=== PATIENT | female | born 1995 | race Caucasian/White ===

== ENCOUNTER 2021-06-29 13:16 | Outpatient (CLI) | payer OTHER, SELFPAY ==
--- NOTE | ~2021-06-29 | CT_ITS ---
EXAMINATION: CT sinus wo con DATE: 06/29/2021 13:50 INDICATION: Deviated septum TECHNIQUE: Computed tomography (CT) of the paranasal sinuses was performed without intravenous contra st. The dose-length product (DLP) was 316.52 mGy-cm. Iterative reconstruction was used. COMPARISON: None FINDINGS: There is normal development and pneumatization of the paranasal sinuses. There is partial o pacification of the ethmoidal air cells. There is moderate mucosal thickening of the left maxillary s inus and mild mucosal thickening of the right maxillary sinus. The frontal and sphenoid sinuses are c lear. There is a small right mastoid effusion. The left mastoid air cells are clear. There are 6 mm o f leftward deviation of the nasal septum. The bilateral ostiomeatal complexes are occluded. Visualize d soft tissues are unremarkable. IMPRESSION: 1. Sinus disease as described above. 2. 6 mm of leftward deviation of the nasal septum. Reviewed, dictated and finalized at location A.
== END 2021-06-29 13:17 | disposition home or self-care (01) ==
PROVIDERS: Visit Provider Otolaryngology
DX: J34.2 Deviated nasal septum (principal); J32.9 Chronic sinusitis, unspecified
CPT/HCPCS: 70486

== ENCOUNTER 2021-08-05 02:26 | Day surgery (SDC) | payer OTHER, SELFPAY ==
[2021-07-29 15:38] VITALS: BMI 31.1
--- NOTE | 2021-07-29 15:42 | PC.NURSE ---
Report to the Outpatient Waiting Room, entrance under the green pavilion located off [facility], at time 0645 on date 08/05/21. OR Time: 0845. - You and your visitor will be asked a series of questions to screen for COVID 19 for your protection. - Only one visitor is allowed at this time. - The patient visitor is requested to leave or wait in car when not with patient. - A mask is required within the hospital. Patients may have clear liquids (water, carbonated beverages, clear teas, apple juice) until 3 hours prior to surgery with a maximum of 20 ounces. - No food from midnight until time of surgery Take the following medications with a SIP of water the morning of surgery: NONE Medications to discontinue per physician: VITAMINS/SUPPLEMENTS Date to take last dose: 08/01/21 Please no make-up, nail north korean, hairspray, perfume, deodorant, or body powder the day of surgery. No jewelry (including any body piercings) or valuables the day of surgery, leave them at home. Please take a shower or bath the night before, or the morning of, surgery with an antibacterial soap. Wear comfortable, loose fitting clothing. - Jewelry must be removed prior to entering the operating room. Rings and piercings that are not removed may be cut off. - The hospital will not accept responsibility for valuables. - Please leave all valuables, including medications, at home the day of surgery. If you are going home after surgery, a licensed limousine driver must drive you home. - NO public transportation without another adult. - We recommend that an adult stay with you for 24 hours following discharge. - We also recommend that you do not drive, make important decision, drink alcoholic beverages, or take any drugs that were not prescribed by your health care provider for at least 24 hours after your discharge time. Follow any additional instructions given to you from your surgeon. If you or anyone in your household have experienced Covid symptoms in the past week, please notify your surgeon or the nurse liaison at the phone number below for possible testing. Telephone instructions given to PT - BRAYAN CHUNG and asked if any additional questions and then verbalized understanding. Patient advised to call surgeon office or pre surgery nurse liaison [phone] if any additional questions.
--- NOTE | 2021-08-03 09:21 | PM.HPGS ---
History of Present Illness History of Present Illness Consent: Risks, benefits, and alternatives have been discussed and questions answered. Patient agrees to proceed with procedure. Chief complaint: chronic sinusitis Narrative: Edilma Velasquez is a 26 year old female with a deviated septum turbinate hypertrophy and chronic maxillary sinusitis Review of Systems Review of Systems: All systems reviewed & are unremarkable except as noted in HPI and below PMFSH Social History Social History Smoking status: Never smoker Alcohol intake: never Substance use: never Substance use type: does not use Living arrangements: with family Spiritual care concerns: No Meds Home Medications and Allergies Home Medications Medication Instructions Recorded Confirmed Type cetirizine 10 mg tablet (Zyrtec) 10 mg PO DAILY 07/29/21 07/29/21 History multivitamin 1 tablet PO DAILY 07/29/21 07/29/21 History Allergies Allergy/AdvReac Type Severity Reaction Status Date / Time Sulfa (Sulfonamide Allergy Severe Anaphylactic Verified 07/29/21 15:37 Antibiotics) Shock Exam Narrative: chest clear heart murmurs abdomen soft septum deviated with obstruction
--- NOTE | 2021-08-03 09:25 | P.HP_ITS ---
History of Present Illness History of Present Illness Consent: Risks, benefits, and alternatives have been discussed and questions answered. Patient agrees to proceed with procedure. Chief complaint: chronic sinusitis Narrative: Edilma Velasquez is a 26 year old female with a septal deviation chronic sinusitis Review of Systems Review of Systems: All systems reviewed & are unremarkable except as noted in HPI and below PMFSH Social History Social History Smoking status: Never smoker Alcohol intake: never Substance use: never Substance use type: does not use Living arrangements: with family Spiritual care concerns: No Comments social family medical history unremarkable Meds Home Medications and Allergies Home Medications Medication Instructions Recorded Confirmed Type cetirizine 10 mg tablet (Zyrtec) 10 mg PO DAILY 07/29/21 07/29/21 History multivitamin 1 tablet PO DAILY 07/29/21 07/29/21 History Allergies Allergy/AdvReac Type Severity Reaction Status Date / Time Sulfa (Sulfonamide Allergy Severe Anaphylactic Verified 07/29/21 15:37 Antibiotics) Shock Exam Narrative: chest clear heart murmurs abdomen soft septum deviated with obstru ction Assessment and Plan Assessment and plan Plan plan septoplasty bilateral inferior turbinectomy
[2021-08-05] VITALS (7 sets, daily range): BP systolic 122–147; BP diastolic 78–88; PULSE 69–108; RESP 12–16; TEMP 36.3–36.7; O2SAT 97–100; BMI 31.6
--- NOTE | 2021-08-05 06:18 | PM.HPGS ---
History of Present Illness History of Present Illness Consent: Risks, benefits, and alternatives have been discussed and questions answered. Patient agrees to proceed with procedure. Chief complaint: chronic sinusitis Narrative: Edilma Velasquez is a 26 year old female [facility] Social History Social History Smoking status: Never smoker Alcohol intake: never Substance use: never Substance use type: does not use Living arrangements: with family Spiritual care concerns: No Comments Family medical social previous medical history all unremarkable Meds Home Medications and Allergies Home Medications Medication Instructions Recorded Confirmed Type cetirizine 10 mg tablet (Zyrtec) 10 mg PO DAILY 07/29/21 07/29/21 History multivitamin 1 tablet PO DAILY 07/29/21 07/29/21 History Allergies Allergy/AdvReac Type Severity Reaction Status Date / Time Sulfa (Sulfonamide Allergy Severe Anaphylactic Verified 07/29/21 15:37 Antibiotics) Shock
--- NOTE | 2021-08-05 06:19 | WPDHPUPDATE1 ---
History and Physical Update Update Date/Time: 08/05/21 06:19 History and Physical has been reviewed, including an updated exam of the patient. There are NO changes in the patient's condition. Risks, benefits, and alternatives have been discussed and questions answered. Patient agrees to proceed with procedure.
--- NOTE | 2021-08-05 07:11 | WPDHPUPDATE1 ---
History and Physical Update Update Date/Time: 08/05/21 07:11 History and Physical has been reviewed, including an updated exam of the patient. There are NO changes in the patient's condition. Risks, benefits, and alternatives have been discussed and questions answered. Patient agrees to proceed with procedure. Assessment & Plan (1) Nasal septal deviation: Code(s): J34.2 - Deviated nasal septum Category: Medical Plan: Septoplasty bilateral inferior turbinectomy bilateral maxillary antrostomy Plan Septoplasty bilateral inferior turbinectomy bilateral maxillary antrostomy
--- NOTE | 2021-08-05 07:12 | PM.HPGS ---
History of Present Illness History of Present Illness Consent: Risks, benefits, and alternatives have been discussed and questions answered. Patient agrees to proceed with procedure. Chief complaint: chronic sinusitis Narrative: Edilma Velasquez is a 26 year old female [facility] Social History Social History Smoking status: Never smoker Alcohol intake: never Substance use: never Substance use type: does not use Living arrangements: with family Spiritual care concerns: No Meds Home Medications and Allergies Home Medications Medication Instructions Recorded Confirmed Type cetirizine 10 mg tablet (Zyrtec) 10 mg PO DAILY 07/29/21 07/29/21 History multivitamin 1 tablet PO DAILY 07/29/21 07/29/21 History Allergies Allergy/AdvReac Type Severity Reaction Status Date / Time Sulfa (Sulfonamide Allergy Severe Anaphylactic Verified 07/29/21 15:37 Antibiotics) Shock
--- NOTE | 2021-08-05 07:14 | WPDHPUPDATE1 ---
History and Physical Update Update Date/Time: 08/05/21 07:14 History and Physical has been reviewed, including an updated exam of the patient. There are NO changes in the patient's condition. Risks, benefits, and alternatives have been discussed and questions answered. Patient agrees to proceed with procedure.
[2021-08-05] MEDS: ACETAMINOPHEN 500 MG TABLET 1000 MG PO (07:35)
--- NOTE | 2021-08-05 07:44 | P.PNAN_ITS ---
Anes - Initial Pre Proc Eval Procedure: Operation Date: 08/05/21 09:15 Proposed Procedures p Septoplasty, Bilateral Inferior Turbinectomy, Bilateral Maxillary Antrostomy - Jamal Garcia MD Date/Time: 08/05/21 07:44 Surgeon: Jamal Garcia MD Pre Op Diagnosis: chronic sinusitis Patient Data Age: 26 Gender: F Height: 1.57 m Weight: 78.3 kg Last Vital Signs Temp 36.7 C 08/05/21 07:38 Pulse 74 08/05/21 07:38 Resp 16 08/05/21 07:38 BP 122/79 08/05/21 07:38 Pulse Ox 100 08/05/21 07:38 O2 Del Method Room Air 08/05/21 07:38 Allergies Allergy/AdvReac Type Severity Reaction Status Date / Time Sulfa (Sulfonamide Allergy Severe Anaphylactic Verified 08/05/21 07:29 Antibiotics) Shock Home Medications Medication Instructions Recorded Confirmed Type cetirizine 10 mg tablet (Zyrtec) 10 mg PO DAILY 07/29/21 08/05/21 History multivitamin 1 tablet PO DAILY 07/29/21 08/05/21 History Patient hx anesthesia problems: none Family hx anesthesia problems: none Results Review: All pre-operative results and documents have been reviewed as part of the pre- operative evaluation. [facility] Social History Social History Smoking status: Never smoker Alcohol intake: never Substance use: never Substance use type: does not use Living arrangements: with family Spiritual care concerns: No Anes - Eval Final PreProcedure Day of Procedure 08/05/21 07:44 Patient weight: overweight Heart: regular rate and rhythm Lungs: clear to auscultation Airway: Mallampati scale class II Neurological: alert and oriented Last oral intake: >/= 8 hours ASA classification: II Emergent: no Anesthetic plan: proceed Anesthesia type and monitoring: general ETT and standard monitoring Results Review: All pre-operative results and documents have been reviewed as part of the pre- operative evaluation. Informed Consent: The patient's anesthetic plan and its attendant risks and benefits were discussed with the patient/family/POA. Questions were solicited and answers provided to the satisfaction of the patient/family/POA.
[2021-08-05] MEDS: LACTATED RINGERS 1,000 ML 30 ML IV CONT ×2 (07:48→10:34)
[2021-08-05] MEDS: COCAINE HCL (*CRX) 4% TOP SOLN 4 ML VIAL 1 APPLIC TOPICAL (09:25)
[2021-08-05] MEDS: LIDO 1%/EPINEPHRINE/PF 1:200,000 30 ML VIAL 5 ML XX (09:26)
--- NOTE | 2021-08-05 09:29 | SUR.PREOP ---
0900; OFFERED TO TAKE PT TO BATHROOM, PT REFUSED
--- NOTE | 2021-08-05 10:01 | W.PM.PROC2 ---
Procedure Note - Detailed Date of Procedure 08/05/21 Pre-op Diagnosis chronic sinusitis Post-op Diagnosis Same Procedure Performed Septoplasty bilateral inferior turbinectomy bilateral maxillary antrostomy Surgeon Jamal Garcia MD
--- NOTE | 2021-08-05 10:04 | W.PM.PROC2 ---
Procedure Note - Detailed Date of Procedure 08/10/21 Pre-op Diagnosis chronic sinusitis septal deviation turbinate hypertrophy Post-op Diagnosis Same Procedure Performed septoplasty bilateral inferior turbinectomy Surgeon Jamal Garcia MD Description of Procedure The patient was prepped and draped fashion general anesthesia the nose packed with cocaine impregnated cottonoids injected with xylocaine with adrenaline a right hemitransection was made left anterior and posterior is elevated the bony cartilage junction and right posterior elevated the bony deviation was removed this strip of septal cartilage was removed off of the bony vomer in grooved the swelling to cartilages bur bony remnant to the midline incision closed with 4-0 chromic and Stokes splints placed in a 2 mm microdebrider was used to reduce disease size of the inferior turbinates and bilateral inferior turbinates were done enlarged and then packed with Surgicel patient awakened returned to recovery good his
[2021-08-05] MEDS: oxyCODONE HCL (*CRX) 5 MG TAB IR PO (11:52)
== END 2021-08-05 12:17 | disposition home or self-care (01) ==
PROVIDERS: Visit Provider Otolaryngology
PROC: (CPT 30520; principal; 2021-08-05 09:15)
DX: J32.8 Other chronic sinusitis (principal)
CPT/HCPCS: 30520; 30140; A9270; J0330; J1100; J1170; J2250; J2405; J2704; J3010; J7120

== ENCOUNTER 2022-01-04 08:23 | Outpatient (CLI) | payer OTHER, SELFPAY ==
[2022-01-04 18:35] LABS: Alanine Aminotransferase 16 U/L (6-35); Albumin Level 4.3 g/dL (3.5-5.1); Alkaline Phosphatase 61 U/L (38-126); Anion Gap 10 mmol/L (8-16); Aspartate Amino Transferase 21 U/L (14-36); Bilirubin,Total 0.7 mg/dL (0.2-1.3); Blood Urea Nitrogen 13 mg/dL (7-17); Calcium 8.9 mg/dL (8.4-10.2); Carbon Dioxide 25 mmol/L (22-30); Chloride 102 mmol/L (98-107); Cholesterol 156 mg/dL (0-200); Estimated Glomerular Filt Rate > 60; Glucose 93 mg/dL (65-110); HDL Direct 38 mg/dL; Potassium 4.2 mmol/L (3.4-5.0); Sodium 137 mmol/L (137-145); Triglycerides 153 mg/dL (<150)
[2022-01-04 18:46] LABS: LDL Cholesterol Direct 90 mg/dL
[2022-01-04 20:51] LABS: Hemoglobin A1C 5.1 % (<5.7)
== END 2022-01-04 08:24 | disposition home or self-care (01) ==
LOC: ANHGOSHLAB 08:26
PROVIDERS: PCP Emergency Medicine; Visit Provider Emergency Medicine
DX: E66.9 Obesity, unspecified (principal)
CPT/HCPCS: 36415; 80053; 80061; 83036

== ENCOUNTER 2022-05-26 08:57 | Outpatient (CLI) | payer OTHER, SELFPAY | END 2022-05-26 08:58 | disposition home or self-care (01) | LOC: ANHAUDIO 08:57 | PROVIDERS: PCP Emergency Medicine; Visit Provider Otolaryngology | DX: H72.91 Unspecified perforation of tympanic membrane, right ear (principal); H90.11 Conductive hearing loss, unilateral, right ear, with unrestricted hearing on the contralateral side | CPT/HCPCS: 92557; 92567 ==

== ENCOUNTER 2022-06-16 09:31 | Outpatient (CLI) | payer OTHER, SELFPAY ==
[2022-06-20 14:18] LABS: Testosterone Total 24 ng/dL (2-45)
== END 2022-06-16 09:32 | disposition home or self-care (01) ==
LOC: ANHGOSHLAB 09:32
PROVIDERS: PCP Emergency Medicine; Visit Provider Nurse Practitioner Family
DX: E66.9 Obesity, unspecified (principal); L68.0 Hirsutism; F32.A Depression, unspecified
CPT/HCPCS: 36415; 83498; 84403

== ENCOUNTER 2022-07-26 01:54 | Day surgery (SDC) | payer OTHER, SELFPAY ==
[2022-07-18 14:19] VITALS: BMI 30.2
--- NOTE | 2022-07-18 14:20 | PC.NURSE ---
Report to the Outpatient Waiting Room, entrance under the green pavilion located off [facility], at time _0815__ on date _07/26/22__. Planned Procedure Time: _1015__. Time changes happen often and if your time is changed the preop area will call you the afternoon before. - You and your visitor will be asked to self-screen and do not enter if you have any COVID symptoms. - A mask is optional within the hospital at this time. Patients may have clear liquids (water, carbonated beverages, clear teas, apple juice) until 3 hours prior to surgery with a maximum of 20 ounces. - No food from midnight until time of surgery - Infants may have breast milk until 4 hours before surgery, infant formula 6 hours prior to surgery. - Children will be allowed to drink immediately following surgery. If applicable, please bring a bottle or sippy cup to assist with drinking. Juice, water, soda, and popsicles are readily available. For infants on formula, please bring formula the day of surgery. Pacifiers are allowed. Take the following medications with a SIP of water the morning of surgery: __no morning meds____ DO NOT STOP ANY OF YOUR OTHER PRESCRIPTION MEDICATIONS PRIOR TO SURGERY ?EXCEPT THE FOLLOWING Medications to discontinue per physician ___Vitamins 3 days prior Date to take last dose Please no make-up, nail congolese, hairspray, perfume, deodorant, or body powder the day of surgery. No jewelry (including any body piercings) or valuables the day of surgery, leave them at home. Please take a shower or bath the night before, or the morning of, surgery with an antibacterial soap. Wear comfortable, loose fitting clothing. Children are encouraged to wear pajamas. - Jewelry must be removed prior to entering the operating room. Rings and piercings that are not removed may be cut off. - The hospital will not accept responsibility for valuables. - Please leave all valuables, including medications, at home the day of surgery. If you are going home after surgery, a licensed log driver must drive you home. - NO public transportation without another adult if you receive anesthesia. - We recommend that an adult stay with you for 24 hours following discharge. - We also recommend that you do not drive, make important decision, drink alcoholic beverages, or take any drugs that were not prescribed by your health care provider for at least 24 hours after your discharge time. For Pediatric surgeries, we recommend two adults accompany the child home. Follow any additional instructions given to you from your surgeon. If you or anyone in your household have experienced Covid symptoms in the past week, please notify your surgeon or the nurse liaison at the phone number below for possible testing. Telephone instructions given to __patient__and asked if any additional questions and then verbalized understanding. Patient advised to call surgeon office or pre surgery nurse liaison [phone] if any additional questions.
--- NOTE | 2022-07-25 18:26 | PM.IMHP ---
H&P: HPI History of Present Illness Date/Time: 07/25/22 18:26 Chief Complaint: Right hearing loss, right tm perforation Narrative: planned procedure Review of Systems Review of Systems: All systems reviewed & are unremarkable except as noted in HPI and below [facility] Social History Social History Years smoked: 1 Smoking status: Former smoker Tobacco type: cigarettes Alcohol intake: current Drinks per week: 1 Alcohol use details: once ot twice a month Substance use: never Substance use type: does not use Lack of Transportation: No Lack of Food: Never True Current Housing: I Have Housing Concerned About Future Housing: No Difficulty Paying Gas/Electric Bills: No Difficulty Paying for Meds: No Currently Unemployed: No Education: High School Diploma/GED Living arrangements: with family Spiritual care concerns: No Meds Home Medications and Allergies Home Medications Medication Instructions Recorded Confirmed Type cetirizine 10 mg tablet (Zyrtec) 10 mg PO DAILY 07/29/21 07/18/22 History multivitamin 1 tablet PO DAILY 07/29/21 07/18/22 History spironolactone 50 mg tablet 50 mg PO BID #60 tabs 06/14/22 07/18/22 Rx fluoxetine 20 mg capsule 20 mg PO DAILY #60 caps 07/15/22 07/18/22 Rx hydroxyzine HCl 25 mg tablet 25 mg PO QHS PRN sleep #30 tabs 07/15/22 07/18/22 Rx Allergies Allergy/AdvReac Type Severity Reaction Status Date / Time Sulfa (Sulfonamide Allergy Severe Anaphylactic Verified 07/18/22 14:10 Antibiotics) Shock Assessment and Plan Assessment and plan (1) Hearing loss in right ear: Code(s): H91.91 - Unspecified hearing loss, right ear Status: Acute Assessment and Plan: ?plan OR right-sided fascial graft versus cartilage button tympanoplasty risks discussed including failure fix issue need for further procedures damage to hearing facial nerve paralysis cholesteatoma bleeding infection total deafness.? Total operative time about 2 hours.? Patient voiced understanding and agreed (2) Unspecified perforation of tympanic membrane, right ear: Code(s): H72.91 - Unspecified perforation of tympanic membrane, right ear Status: Acute
[2022-07-26] VITALS (9 sets, daily range): BP systolic 114–135; BP diastolic 77–90; PULSE 70–87; RESP 10–20; TEMP 36.2–36.4; O2SAT 95–100
--- NOTE | 2022-07-26 07:19 | WPDHPUPDATE1 ---
History and Physical Update Update Date/Time: 07/26/22 07:19 History and Physical has been reviewed, including an updated exam of the patient. There are NO changes in the patient's condition. Risks, benefits, and alternatives have been discussed and questions answered. Patient agrees to proceed with procedure.
--- NOTE | 2022-07-26 09:16 | WPDANESEPP ---
Anes - Eval Pre Procedure Procedure: Operation Date: 07/26/22 10:15 Proposed Procedures p Right Tympanoplasty, Cartilage Button Versus Fascia Graft - Levi Galo MD Date/Time: 07/26/22 09:16 Pre Op Diagnosis: right TM perforation Patient Data Age: 27 Gender: F Height: 1.57 m Weight: 77.6 kg Last Vital Signs Temp 36.4 C 07/26/22 08:17 Pulse 70 07/26/22 08:17 Resp 14 07/26/22 08:17 BP 114/84 07/26/22 08:17 Pulse Ox 100 07/26/22 08:17 O2 Del Method Room Air 07/26/22 08:17 Allergies Allergy/AdvReac Type Severity Reaction Status Date / Time Sulfa (Sulfonamide Allergy Severe Anaphylactic Verified 07/26/22 08:21 Antibiotics) Shock Home Medications Medication Instructions Recorded Confirmed Type cetirizine 10 mg tablet (Zyrtec) 10 mg PO DAILY 07/29/21 07/18/22 History multivitamin 1 tablet PO DAILY 07/29/21 07/18/22 History spironolactone 50 mg tablet 50 mg PO BID #60 tabs 06/14/22 07/18/22 Rx fluoxetine 20 mg capsule 20 mg PO DAILY #60 caps 07/15/22 07/18/22 Rx hydroxyzine HCl 25 mg tablet 25 mg PO QHS PRN sleep #30 tabs 07/15/22 07/18/22 Rx Patient hx anesthesia problems: none Family hx anesthesia problems: none Results Review: All pre-operative results and documents have been reviewed as part of the pre-operative evaluation. [facility] Social History Social History Years smoked: 1 Smoking status: Former smoker Tobacco type: cigarettes Alcohol intake: current Drinks per week: 1 Alcohol use details: once ot twice a month Substance use: never Substance use type: does not use Lack of Transportation: No Lack of Food: Never True Current Housing: I Have Housing Concerned About Future Housing: No Difficulty Paying Gas/Electric Bills: No Difficulty Paying for Meds: No Currently Unemployed: No Education: High School Diploma/GED Living arrangements: with family Spiritual care concerns: No Exam Day of Procedure 07/26/22 09:16
--- NOTE | 2022-07-26 09:20 | P.PNAN_ITS ---
Anes - Eval Final PreProcedure Day of Procedure 07/26/22 09:20 Patient weight: obese Heart: regular rate and rhythm Lungs: clear to auscultation Airway: Mallampati scale class II Neurological: alert and oriented Last oral intake: >/= 8 hours ASA classification: II Emergent: no Anesthetic plan: proceed Anesthesia type and monitoring: general LMA and standard monitoring Results Review: All pre-operative results and documents have been reviewed as part of the pre- operative evaluation. Informed Consent: The patient's anesthetic plan and its attendant risks and benefits were discussed with the patient/family/POA. Questions were solicited and answers provided to the satisfaction of the patient/family/POA.
[2022-07-26] MEDS: ceFAZolin 2 GM/D5W 50 ML 2 GM/50 ML BAG IVPB (09:25)
[2022-07-26] MEDS: LACTATED RINGERS 1,000 ML 30 ML IV CONT ×2 (09:44→11:03)
[2022-07-26] MEDS: LIDO 1%/EPINEPHRINE 1:100,000 50 ML VIAL INFILTRATE (09:46)
[2022-07-26] MEDS: NEOMYCIN/POLYMYXIN B/PRAMOXINE 15 GM CREAM 1 APPLIC TOPICAL (09:47)
[2022-07-26] MEDS: CIPROFLOXACIN HCL 0.3% OP SOLN 2.5 ML BTL 4 DROP EACH EAR (09:48)
[2022-07-26] MEDS: OXYMETAZOLINE HCL 0.05% NAS 15 ML BTL (*BKC) 1 SPRAY NASAL (09:56)
--- NOTE | 2022-07-26 11:22 | W.PM.PROC2 ---
Procedure Note - Detailed Date of Procedure 07/26/22 Pre-op Diagnosis right TM perforation Post-op Diagnosis Same Procedure Performed Right-sided cartilage button tympanoplasty Surgeon Levi Galo MD Anesthesia General Indications see above Findings large almost 4 mm right-sided centrally located perforation 5 mm cartilage but utilized Description of Procedure patient identified consent verified. Patient brought operating room. Site marked. General anesthesia induced LMA placed. Patient prepped draped position procedure confirmed 2nd time-out performed. Right-sided perforation viewed described above perforation rimmed excess skin pulled out Afrin-soaked pledgets placed post ashlee incision made 6 mm graft harvested. Graft was then carved under microscope. Placed in the ear canal was too large . The 6 mm graft was then trimmed down to a 5 mm graft. The butterfly shaped was further carved into this period was then successfully placed within the perforation spun around it appeared to cover all sides adequately. The most superior anterior portion was not visualized. Gelfoam was placed above this covered in Ciprodex small amount. The incision postauricularly post ashlee bowl was closed with 3 interrupted 5 0 fast gut sutures. Blood loss probably 3 cc no complications I performed all dictated portions of the procedure care the patient given Anesthesiology. Patient taken to PACU. Estimated Blood Loss -3.0 Drains No Packing Yes (Gelfoam, absorbable ) Pathology None sent Complications No immediate complications Condition Stable Disposition PACU [facility] Billing Surgery - Charge Forward: Surgery Billing
[2022-07-26] MEDS: fentaNYL CITRATE INJ (*CRX) 100 MCG/2 ML VIAL 25 MCG IV PUSH ×2 (11:41→11:44)
--- NOTE | 2022-07-26 11:53 | SUR.PHASEI ---
pt complains pain /. pt crying,reynaldo diehl at side and gave pt fentanyl 100 mcg,tylenol 1000mg,dilaudid 1 mg iv.
[2022-07-26] MEDS: oxyCODONE HCL (*CRX) 5 MG TAB IR PO (12:50)
== END 2022-07-26 13:24 | disposition home or self-care (01) ==
PROVIDERS: PCP Emergency Medicine; Visit Provider Otolaryngology
PROC: (CPT 69631; principal; 2022-07-26 10:15)
DX: H72.01 Central perforation of tympanic membrane, right ear (principal); H91.91 Unspecified hearing loss, right ear; Z87.891 Personal history of nicotine dependence
CPT/HCPCS: 69631; 21235; A9270; J0171; J0690; J1100; J1170; J2250; J2405; J2704; J3010; J7120

== ENCOUNTER 2022-09-02 12:34 | Outpatient (CLI) | payer OTHER, SELFPAY ==
[2022-09-02 18:46] LABS: Anion Gap 4 mmol/L (8-16); Blood Urea Nitrogen 13 mg/dL (7-17); Calcium 9.5 mg/dL (8.4-10.2); Carbon Dioxide 34 mmol/L (22-30); Chloride 102 mmol/L (98-107); Estimated Glomerular Filt Rate > 60; Glucose 75 mg/dL (65-110); Potassium 4.2 mmol/L (3.4-5.0); Sodium 140 mmol/L (137-145)
[2022-09-05 05:38] LABS: Rapid Plasma Reagin Non-Reactive (NonReactive)
[2022-09-05 13:59] LABS: HIV DNA PCR (Qual) Not Detected (Not Detected)
== END 2022-09-02 12:35 | disposition home or self-care (01) ==
LOC: ANHGOSHLAB 12:35
PROVIDERS: Anesthesiology; Nurse Practitioner Family; PCP Emergency Medicine; Visit Provider Emergency Medicine
DX: Z11.3 Encounter for screening for infections with a predominantly sexual mode of transmission (principal); Z01.818 Encounter for other preprocedural examination
CPT/HCPCS: 36415; 80048; 86592; 86695; 86696; 87535

== ENCOUNTER 2022-12-01 04:36 | Emergency (ER) | payer OTHER, SELFPAY ==
[2022-12-01 04:39] VITALS: BP 119/78; PULSE 100; RESP 16; TEMP 36.7; O2SAT 99
[2022-12-01 05:16] LABS: Strep Group A RT-PCR NOT DETECTED (Negative)
[2022-12-01 05:21] VITALS: O2SAT 100
[2022-12-01 06:42] LABS: Influenza A QL RT-PCR Negative (Negative); Influenza B QL RT-PCR Negative (Negative); RSV RNA, RT-PCR Negative (Negative); SARS-CoV-2 RNA PCR Positive (Negative)
--- NOTE | 2022-12-01 07:39 | ED.FEVER ---
HPI - Fever General Chief Complaint: Fever Stated Complaint: fever of 103.5, cough, cold, body aches Time Seen by Provider: 12/01/22 06:57 History of Present Illness HPI Narrative: This is a 27-year-old female, with past history of anxiety, presents emergency department complaining of cough, fevers and sore throat for the past 5 days. This is associated with nonproductive, nonbloody cough and a fever of 103.5 at home. Patient denies recent travel or known sick contacts Related Data Home Medications Medication Instructions Recorded Confirmed cetirizine 10 mg tablet (Zyrtec) 10 mg PO DAILY 07/29/21 08/22/22 multivitamin 1 tablet PO DAILY 07/29/21 08/22/22 Allergies Allergy/AdvReac Type Severity Reaction Status Date / Time Sulfa (Sulfonamide Allergy Severe Anaphylactic Verified 09/02/22 11:07 Antibiotics) Shock Review of Systems Review of Systems: CONSTITUTIONAL: Denies fever, chills, or sweats. EYES: Denies visual changes, redness, or discharge. ENT: Denies rhinorrhea, congestion, sore throat, or otalgia. CARDIOVASCULAR: Denies chest pain, palpitations, or edema. RESPIRATORY: Denies cough or dyspnea. GASTROINTESTINAL: Denies abdominal pain, nausea, vomiting, or diarrhea. GENITOURINARY: Denies dysuria or hematuria. SKIN: Denies rash or itching. MUSCULOSKELETAL: Denies back pain, joint pain, or myalgia. NEUROLOGIC: Denies headache, numbness, dizziness, or weakness. PSYCHIATRIC: Denies anxiety or depression. [facility] Social History Social History Social History: Caffeine-daily Years smoked: 1 Smoking status: Former smoker Tobacco type: cigarettes Alcohol intake: current Drinks per week: 1 Alcohol use details: once ot twice a month Substance use: never Substance use type: does not use Lack of Transportation: No Lack of Food: Never True Current Housing: I Have Housing Concerned About Future Housing: No Difficulty Paying Gas/Electric Bills: No Difficulty Paying for Meds: No Currently Unemployed: No Education: High School Diploma/GED Difficulty w/ Childcare or Family Care: No Living arrangements: with family Spiritual care concerns: No Exam Narrative: GENERAL: Well-developed, well-nourished, and in no acute distress. HEAD: Normocephalic, atraumatic. EYES: PERRLA and EOMI. ENT: Nares clear, no rhinorrhea or epistaxis. Mucous membranes moist. Oropharynx without tonsillar hypertrophy exudate or other lesions. CHEST: Clear to auscultation. No respiratory distress. No wheezes rales or rhonchi HEART: Regular rate and rhythm. No murmur heard. Normal peripheral pulses. ABDOMEN: Soft, nontender, nondistended, normal active bowel sounds. EXTREMITIES: Normal range of motion. No edema. SKIN: Warm, dry, no rash. NEURO: Alert and oriented x3. Moving all 4 limbs purposefully. PSYCH: Normal mood and affect. Course Reevaluation(s) Reevaluation #1: 07:40 - The patient tested positive for COVID, though negative for influenza, RSV and strep. Will discharge with recommendation for primary care follow-up. Discussed return emergency precautions including signs/symptoms of respiratory distress and ACS. The patient voiced understanding and is comfortable with the plan. All questions answered to her satisfaction. Vital Signs Vital signs: Vital Signs Temperature 98.1 F 12/01/22 04:39 Pulse Rate 100 12/01/22 04:39 Respiratory Rate 16 12/01/22 04:39 Blood Pressure 119/78 12/01/22 04:39 Pulse Oximetry 99 12/01/22 04:39 Oxygen Delivery Room Air 12/01/22 04:39 Temperature 98.1 F 12/01/22 04:39 Pulse Rate 100 12/01/22 04:39 Respiratory Rate 16 12/01/22 08:08 Blood Pressure 119/78 12/01/22 04:39 Pulse Oximetry 100 12/01/22 05:21 Oxygen Delivery Room Air 12/01/22 05:21 MDM - Fever MDM Narrative Medical decision making narrative: Plan: Labs, primary care follow-up, reassess
[2022-12-01 08:08] VITALS: RESP 16
== END 2022-12-01 08:09 | disposition home or self-care (01) ==
PROVIDERS: Emergency Medicine; Emergency Provider Preventive Medicine Aerospace Medicine; PCP Emergency Medicine
DX: U07.1 COVID-19 (principal); F41.9 Anxiety disorder, unspecified; Z87.891 Personal history of nicotine dependence
CPT/HCPCS: 87637; 87651; 99283

== ENCOUNTER 2023-05-28 21:37 | Emergency (ER) | payer OTHER, SELFPAY ==
--- NOTE | ~2023-05-28 | XR_ITS ---
EXAMINATION: XR knee LT min 4V DATE: 05/28/2023 21:59 INDICATION: Left knee injury. TECHNIQUE: 4 views of left knee were obtained. COMPARISON: None. FINDINGS: Bone alignment is normal. No fracture. Joint spaces are normal. There is a moderate-sized k nee joint effusion. IMPRESSION: 1. Moderate-sized left knee joint effusion. Reviewed, dictated and finalized at location E.
[2023-05-28 21:39] VITALS: BP 128/54; PULSE 83; RESP 16; TEMP 36.3; O2SAT 100
--- NOTE | 2023-05-28 23:10 | ED.GENADULT ---
[facility] - General Adult General Chief complaint: Extremity Injury, Lower Stated complaint: L knee pain Time Seen by Provider: 05/28/23 22:14 Source: patient Mode of arrival: ambulatory Limitations: no limitations History of Present Illness HPI narrative: This is a 27-year-old female who presents to the ED with chief complaint of left knee injury occurring 1 day ago. Patient reports playing a VR video game with her friends at the time of the injury. She reports that she jumped up and when she landed she felt her left knee buckle. Reports feeling a pop and has had a lot of increased swelling over the past day despite taking ice and ibuprofen. Reports it is generally painful around the knee and worse with bending. Denies any further sites of pain or injury. Denies numbness or weakness. Related Data Home Medications Medication Instructions Recorded Confirmed cetirizine 10 mg tablet (Zyrtec) 10 mg PO DAILY 07/29/21 08/22/22 multivitamin 1 tablet PO DAILY 07/29/21 08/22/22 Allergies Allergy/AdvReac Type Severity Reaction Status Date / Time Sulfa (Sulfonamide Allergy Severe Anaphylactic Verified 05/28/23 21:38 Antibiotics) Shock Review of Systems Review of Systems: All systems as dictated in [facility] Social History Social History Social History: Caffeine-daily Years smoked: 1 Smoking status: Former smoker Tobacco type: cigarettes Alcohol intake: current Drinks per week: 1 Alcohol use details: once ot twice a month Substance use: never Substance use type: does not use Lack of Transportation: No Lack of Food: Never True Current Housing: I Have Housing Concerned About Future Housing: No Difficulty Paying Gas/Electric Bills: No Difficulty Paying for Meds: No Currently Unemployed: No Education: High School Diploma/GED Difficulty w/ Childcare or Family Care: No Living arrangements: with family Spiritual care concerns: No Exam Narrative: GENERAL: Well-appearing, well-nourished, and in no acute distress. HEAD: Normocephalic, atraumatic. EYES: PERRLA and EOMI. ENT: Nares clear, no rhinorrhea or epistaxis. Mucous membranes moist. Oropharynx without tonsillar hypertrophy exudate or other lesions. NECK: Supple. No adenopathy or masses. CHEST: No respiratory distress. Clear to auscultation. No wheezes rales or rhonchi HEART: Regular rate and rhythm. No murmur heard. Normal peripheral pulses. ABDOMEN: Soft, nontender, nondistended, normal active bowel sounds. MSK: Left knee joint effusion present. No warmth or erythema. Somewhat decreased range of motion due to pain. Able to ambulate. Mild tenderness throughout the knee joint. No deformity. Compartments soft. Neurovascularly intact distally. Right knee and right lower extremity benign SKIN: Warm, dry, no rash. NEURO: Alert and oriented x3. No focal deficits. PSYCH: Normal mood and affect. Course Vital Signs Vital signs: Vital Signs Temperature 97.4 F L 05/28/23 21:39 Pulse Rate 83 05/28/23 21:39 Respiratory Rate 16 05/28/23 21:39 Blood Pressure 128/54 L 05/28/23 21:39 Pulse Oximetry 100 05/28/23 21:39 Oxygen Delivery Room Air 05/28/23 21:39 Temperature 98.0 F 05/28/23 23:25 Pulse Rate 71 05/28/23 23:25 Respiratory Rate 16 05/28/23 23:25 Blood Pressure 123/74 05/28/23 23:25 Pulse Oximetry 100 05/28/23 23:25 Oxygen Delivery Room Air 05/28/23 21:39 Medical Decision Making MDM Narrative Medical decision making narrative: This is a 27-year-old female who presents to the ED with chief complaint of left knee pain after injury yesterday. Vitals are normal. Exam shows left knee effusion. X-rays remarkable for the same. No fracture. She will be given knee immobilizer and crutches. Symptoms and presentation most likely consistent with ligamentous sprain. Ortho referral given. Pt will be discharged in sta
[2023-05-28 23:25] VITALS: BP 123/74; PULSE 71; RESP 16; TEMP 36.7; O2SAT 100
== END 2023-05-28 23:26 | disposition home or self-care (01) ==
PROVIDERS: Emergency Provider Physician Assistant; PCP Emergency Medicine
DX: S89.92XA Unspecified injury of left lower leg, initial encounter (principal); T14.90XA Injury, unspecified, initial encounter; Z87.891 Personal history of nicotine dependence
CPT/HCPCS: 73564; 99283

== ENCOUNTER 2023-08-28 10:00 | Outpatient (RCR) | payer OTHER, SELFPAY ==
--- NOTE | 2023-07-15 10:20 | PTOPEVAL1 ---
Assessment and note entered by Kadi Aponte, PT Evaluation Information Assessment Status Evaluation Assessment PT Clinical Summary Pt presents with increased pain to L knee symptoms consistent with meniscal tear injury, significant limitation to ROM, mild effusion resulting to decreased mobility, strength and balance impairments and gait deviations impacting performance at her work and personal life. Skilled PT necessary to address deficits and improve quality of life. Plan of Care Interventions Electrical Stimulation,Gait Training,Hot Pack/Cold Pack,Manual Therapy,Neuro Re-education,Patient/ Caregiver Education,Therapeutic Activities, Therapeutic Exercise PT Services Indicated Yes Treatment Frequency and 2x/wk for 8 visits Duration These treatments will address the objective and functional deficits as defined above. The patient will be advanced safely and appropriately in order for the patient to progress towards his/her prior level of function. Additional exercises will be introduced and as well as a comprehensive home exercise program upon discharge, if needed, ?to ensure carryover of functional gains achieved in the clinic. This treatment plan has been reviewed and agreement upon by the patient.
--- NOTE | 2023-07-31 18:46 | PCPTNOTE ---
Pt did not show up for the scheduled time today.
--- NOTE | 2023-08-14 11:11 | PCPTNOTE ---
Pt NS visit today, called and LM with next day and appt time.
--- NOTE | 2023-08-28 10:44 | PTOPDC ---
Assessment and note entered by Margarita Bundy, PT Evaluation Information Assessment Status Discharge Subjective Information knee is better- more mobility and movement; is doing the ecliptical for fitness; have not returned to running- tried once and knee hurt, so stopped; have done the treadmill with fast walking and use of incline; is able to do all of her daily things; Reported Pain Level Pain Score Self Report Additional Pain Score Comments pain range in the past week: 0-4/10; tight, sore and achy; Assessment PT Clinical Summary Edilma has received 9 PT sessions. She did not show for 2 appointments. Compared to the initial evaluation: pain has decreased; ROM and strength of L knee have increased; she has returned to all of her usual activities, but running. Education completed for HEP. She continues to use ice and rest PRN for managing pain/tightness. The goals were met, except pain rating at worst. Discharge PT services. Plan of Care PT Services Indicated No
== END 2023-08-28 11:44 | disposition home or self-care (01) ==
LOC: ANHPT 10:00
PROVIDERS: PCP Emergency Medicine; Visit Provider Emergency Medicine
DX: M25.462 Effusion, left knee (principal); S89.90XD Unspecified injury of unspecified lower leg, subsequent encounter
CPT/HCPCS: 97014; 97110; 97112; 97140; 97161; 97530; G0283

== ENCOUNTER 2024-05-02 10:06 | Outpatient (CLI) | payer OTHER, SELFPAY ==
[2024-05-02 11:28] LABS: Basophils Absolute Auto 0.1 K/mm3 (0.0-0.1); Basophils Percent Auto 1.1 % (0.2-1.2); Eosinophils Absolute Auto 0.6 K/mm3 (0-0.3); Eosinophils Percent Auto 6.1 % (0-4.4); Hematocrit 41.6 % (37.0-47.0); Hemoglobin 13.8 g/dL (12.0-15.0); Immature Granulocyte Absolute 0.04 K/mm3 (0.00-0.031); Immature Granulocyte Percent A 0.4 % (0-0.5); Lymphocytes Absolute Auto 2.09 K/mm3 (0.9-3.2); Lymphocytes Percent Auto 23.1 % (18.3-44.2); Mean Corpuscular HGB Conc 33.2 g/dl (32-36); Mean Corpuscular Hemoglobin 30.8 pg (26-34); Mean Corpuscular Volume 92.9 fl (80-100); Mean Platelet Volume 9.8 fl (7.4-10.4); Monocytes Absolute Auto 0.6 K/mm3 (0.1-0.6); Monocytes Percent Auto 6.6 % (2.6-8.5); Neutrophils Absolute Auto 5.7 K/mm3 (1.3-6.7); Neutrophils Percent Auto 62.7 % (45.5-73.1); Platelet Count Result 336 k/mm3 (150-375); Red Blood Count 4.48 M/mm3 (4.2-5.4); Red Cell Distribution Width 12.4 % (11.5-14.5)
--- OUTSIDE RECORDS SUMMARY | 2024-05-02 11:30 | XMS_ITS | Clinical Summary ---
Author Organization [facility] Address [facility] [address] [place] [address] Care Team Providers Care Seo Strategist Name Role Phone Non-Staff, Provider Primary Care Provider Amber lable Allergies Active Allergy Reactions Criticality Noted Date Comments Sulfa Antibiotics Anaphylaxis High 09/29/2023 Medications ALPRAZolam (XANAX) 0.25 MG tablet Take 1 tablet (0.25 mg total) by mouth 3 (three) times daily as needed. FOR ANXIETY 07/14/2023 Active calcium citrate-vitamin D 315 MG-5 mcg tablet Take 1 tablet by mouth daily. Active spironolactone (ALDACTONE) 50 MG tablet Take 1 tablet (50 mg total) by mouth 2 (two) times daily. 06/07/2023 Active Active Problems No known active problems Family History Medical History Relation Comments Hypertension Father Hypertension Mother Relation Status Comments Father Mother Social History Tobacco Use Types Packs/Day Years Used Date Smoking Tobacco: Some Days Cigarettes Smokeless Tobacco: Never Tobacco Cessation:Ready to Q uit: Not Asked; Counseling Given: Not Answered Alcohol Use Standard Drinks/Week Comments Yes 0 (1 standard drink = 0.6 oz pur e alcohol) social Comments No Sex and Gender Information Value Date Recorded Sex Assigned at Not on file Legal Sex Female 1:33 PM CDT Gender Identity Not on file Sexual Orientation Not on file Last Filed Vital Signs Vital Sign Reading Time Taken Comments Blood Pressure 136/74 09/29/2023 1:48 PM CDT Pulse 74 09/29/2023 1:48 PM CDT Temperature 36.7 C (98 F) 09/29/2023 1:48 PM CDT Respiratory Rate 18 09/29/2023 1:48 PM CDT Oxygen Saturation 100% 09/29/2023 1:48 PM CDT Inhaled Oxygen Concentration - - Weight 74.8 kg (165 lb) 09/29/2023 1:48 PM CDT Height 157.5 cm (5' 2 ) 09/29/2023 1:48 PM CDT Body Mass Index 30.18 09/29/2023 1:48 PM CDT Plan of Treatment Health Maintenance Due Date Last Done Comments Cervical Cancer Screening Pa p Smear (Age 21 to 29) Every 3 Years 1997 Cervical Cancer Screening 1997 Annual Physical 2000 Pneumococcal Vaccine: Pediatrics (0 to 5 Years) and At-Risk Patients (6 to 64 Years) (1 of 2 - PCV) 07/19/2003 HPV Vaccines (1 - 3-dose series) 2012 Hepatitis C 07/19/2015 Hepatitis B Vaccines (1 of 3 - 19+ 3-dose series) 2016 COVID-19 Vaccine (3 - 2023-2 5 season) 2023 09/03/2020, 08/12/2020 Influenza Adult (#1) 2023 12/06/2017, 12/14/2016 DTaP, Tdap and Td Vaccines ( 4 - Td or Tdap) 12/07/2027 12/06/2017, 12/14/2016, 10/13/2016 Meningococcal B Vaccine Aged Out No l onger eligible based on patient's age to complete this topic Meningococcal Vaccine Aged Out No opal yenny eligible based on patient's age to complete this topic RSV Immunizations Under 20 Months Aged Out No longer eligible b ased on patient's age to complete this topic [facility] Care Teams Seo Strategist Relationship Specialty Start Date End Date Non-Staff, Provider PCP - General UNKNOWN PHYSICIAN SPECIALTY 09/29/23
--- OUTSIDE RECORDS SUMMARY | 2024-05-02 11:30 | XMS_ITS | Clinical Summary ---
Author Organization [facility] Address [address] [place] [address] Care Team Providers Care Clinical Documentation Clerk Name Role Phone Unavailable Primary Care Provider Unavailabl e Source Comments [facility],non-owned Affiliates and Associated Physician Practices is amultiple site organization consisting of ambulatory clinics and hospital sitesin [place], [place], [place] and [place]. This disclosure is being madepursuant to the Care Everywhere program and may not contain all information available regarding this patient. Last updated 17.[facility] Allergies Active Allergy Reactions Criticality Noted Date Comments Sulfa Drugs 12/07/2016 Medications * Be aware that medications may not be up to date on this document. Alwaysverify current medications with the patient. Medication Sig Dispensed Refills Start Date End Date Status Vit-Fe Fumarate-FA ( VITAMIN) 28-0.8 MG tabletIndications:Pre gnancy Take 1 tablet by mouth once daily Reasons: Active calcium citrate-vitamin D (CITRACAL PLUS D) 315-200 MG-UNIT tabletIndications:Hyp ocalcemia,chewable Take 1 tablet by mouth once daily Reasons: Low Amount of Calcium in the Blood, chewable Active aspirin (ASPIRIN) 81 MG chew tablet Take 81 mg by mouth once daily Active Active Problems Problem Noted Date Diagnosed Date Elevated blood pressure reading 12/07/2016 HELLP syndrome (HELLP), third trimester Preeclampsia, severe, third trimester Comments Yes Immunizations Name Administration Dates Next Due INFLUENZA VACCINE, QUADR. (F LUZONE; FLULAVAL; FLUARIX; AFLURIA QUADRIVALENT; 6MO+), 0.5 ML (IIV4) 12/14/2016 TDAP (7yrs+) 12/14/2016 Family History Medical History Relation Name Comments Hyperlipidemia Father Hypertension Father Hypertension Mother Relation Name Status Comments Father Mother Social History Tobacco Use Types Packs/Day Years Used Date Smoking Tobacco: Never Smokeless Tobacco: Never Tobacco Cessation:Counseling Given: No Alcohol Use Standard Drinks/Week Comments No 0 (1 standard drink = 0.6 oz pur e alcohol) Comments Yes Sex and Gender Information Value Date Recorded Sex Assigned at Not on file Gender Identity Not on file Sexual Orientation Not on file Last Filed Vital Signs Vital Sign Reading Time Taken Comments Blood Pressure 110/72 11/27/2017 3:11 PM CDT Pulse 88 11/27/2017 3:11 PM CDT Temperature 36.7 C (98.1 F) 11/27/2017 3:11 PM CDT Respiratory Rate 18 11/27/2017 3:11 PM CDT Oxygen Saturation 99% 11/27/2017 3:11 PM CDT Inhaled Oxygen Concentration - - Weight 76.2 kg (168 lb) 11/27/2017 3:11 PM CDT Height 157.5 cm (5' 2 ) 11/27/2017 3:11 PM CDT Body Mass Index 30.73 11/27/2017 3:11 PM CDT Plan of Treatment Health Maintenance Due Date Last Done Comments PAP SMEAR 1997 HIV SCREENING 2012 HPV VACCINE (1 - 3-dose series) 2012 HEPATITIS C SCREENING 07/14/2015 HEPATITIS B VACCINE (1 of 3 - 19+ 3-dose series) 2016 COVID-19 VACCINE ( - 2023-2 5 season) 2023 INFLUENZA VACCINE (#1) 2023 12/14/2016 DEPRESSION SCREENING 02/28/2024 DTAP/TDAP/TD VACCINES (2 - T d or Tdap) 12/14/2026 12/14/2016 ZOSTER VACCINE (1 of 2) 07/19/2047 Respiratory Syncytial Virus (RSV) Vaccine Pt: or over 60 yrs (1 - 1-dose 75+ series) 2072 HIB VACCINE Aged Out No longer eligi ble based on patient's age to complete this topic MENINGOCOCCAL (Group B) VACCINE Aged Out No longer eligible based on patient's age to complete this topic MENINGOCOCCAL VACCINE Aged Out No opal yenny eligible based on patient's age to complete this topic PNEUMOCOCCAL VACCINE Aged Out No long er eligible based on patient's age to complete this topic Advance Directives * Full Code (Latest Code Status on File) Date Activated Date Inactivated Comments 12/08/2016 12:51 PM 12/14/2016 2:17 PM * Full Code Date Activated Date Inactivated Comments 12/07/2016 1:17 PM 12/08/2016 12:51 PM
--- OUTSIDE RECORDS SUMMARY | 2024-05-02 11:31 | XMS_ITS | Patient Health Summary ---
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 This disclosure is being madepursuant to the Care Everywhere program and may not contain all information available regarding this patient. Last updated 17.[facility] Allergies * Sulfa Drugs Medications * Be aware that medications may not be up to date on this document. Alwaysverify current medications with the patient. * Vit-Fe Fumarate-FA ( VITAMIN) 28-0.8 MG tablet Take 1 tablet by mouth once daily Reasons: * calcium citrate-vitamin D (CITRACAL PLUS D) 315-200 MG-UNIT tablet Take 1 tablet by mouth once daily Reasons: Low Amount of Calcium in the Blood, chewable * aspirin (ASPIRIN) 81 MG chew tablet Take 81 mg by mouth once daily Active Problems Problem Noted Date Diagnosed Date Elevated blood pressure reading 12/07/2016 HELLP syndrome (HELLP), third trimester Preeclampsia, severe, third trimester Immunizations * INFLUENZA VACCINE, QUADR. (FLUZONE; FLULAVAL; FLUARIX; AFLURIA QUADRIVALENT; 6MO+), 0.5 ML (IIV4)(Given 12/14/2016) * TDAP (7yrs+)(Given 12/14/2016) Social History Tobacco Use Types Packs/Day Years [...] Mass Index 30.73 11/27/2017 3:11 PM CDT Procedures * STREP A SCREEN - POINT OF CARE (AMB) STL(Performed 11/27/2017) Performed for Acute maxillary sinusitis, recurrence not specified * STREP A SCREEN - POINT OF CARE (AMB) STL(Performed 10/06/2017) Performed for Acute streptococcal pharyngitis * IMAGING/RADIOLOGY/XRAY RESULTS ORDER(Performed 12/16/2016) * LAB RESULTS ORDER(Performed 12/16/2016) * COMPREHENSIVE METABOLIC PANEL(Performed 12/16/2016) Performed for Hemolysis, elevated liver enzymes, and low platelet (HELLP) syndrome during , antepartum (HCC) * CBC W AUTO DIFFERENTIAL(Performed 12/16/2016) Performed for Hemolysis, elevated liver enzymes, and low platelet (HELLP) syndrome during , antepartum (HCC) * COMPREHENSIVE METABOLIC PANEL(Performed 12/14/2016) * CBC W AUTO DIFFERENTIAL(Performed 12/14/2016) * COMPREHENSIVE METABOLIC PANEL(Performed 12/13/2016) * CBC W AUTO DIFFERENTIAL(Performed 12/13/2016) * COMPREHENSIVE METABOLIC PANEL(Performed 12/13/2016) * CBC W AUTO DIFFERENTIAL(Performed 12/13/2016) * COMPREHENSIVE METABOLIC PANEL(Performed 12/12/2016) * CBC W AUTO DIFFERENTIAL(Performed 12/12/2016) * COMPREHENSIVE METABOLIC PANEL(Performed 12/11/2016) * CBC W AUTO DIFFERENTIAL(Performed 12/11/2016) * TYPE + SCREEN PANEL(Performed 12/11/2016) * SLIDE SCAN HEMATOLOGY(Performed 12/11/2016) * COMPREHENSIVE METABOLIC PANEL(Performed 12/11/2016) * CBC W AUTO DIFFERENTIAL(Performed 12/11/2016) * COMPREHENSIVE METABOLIC PANEL(Performed 12/10/2016) * CBC W AUTO DIFFERENTIAL(Performed 12/10/2016) * SLIDE SCAN HEMATOLOGY(Performed 12/10/2016) * COMPREHENSIVE METABOLIC PANEL(Performed 12/10/2016) * CBC W AUTO DIFFERENTIAL(Performed 12/10/2016) * GENTAMICIN LEVEL RANDOM(Performed 12/10/2016) * SLIDE SCAN HEMATOLOGY(Performed 12/10/2016) * PT PTT PANEL(Performed 12/10/2016) * FIBRINOGEN ACTIVITY(Performed 12/10/2016) * CBC W AUTO DIFFERENTIAL(Performed 12/10/2016) * SLIDE SCAN HEMATOLOGY(Performed 12/10/2016) * COMPREHENSIVE METABOLIC PANEL(Performed 12/10/2016) * CBC W AUTO DIFFERENTIAL(Performed 12/10/2016) * COMPREHENSIVE METABOLIC PANEL(Performed 12/10/2016) * CBC W AUTO DIFFERENTIAL(Performed 12/10/2016) * PATHOLOGY TISSUE EXAM (STL)(Performed 12/10/2016) Performed for Elevated blood pressure reading, Hypertension affecting , third trimester (HCC), HELLP syndrome (HELLP), third trimester (HCC), Preeclampsia, severe, third trimester (HCC) * BLOOD GASES CORD ANNA MARIE (ISTAT)(Performed 12/10/2016) * BLOOD GASES CORD ART (ISTAT)(Performed 12/10/2016) * NEURAXIAL BLOCK(Performed 12/10/2016) * COMPREHENSIVE METABOLIC PANEL(Performed 12/09/2016) * MAGNESIUM BLOOD(Performed 12/09/2016) * CBC W AUTO DIFFERENTIAL(Performed 12/09/2016) * COMPREHENSIVE METABOLIC PANEL(Performed 12/09/2016) * MAGNESIUM BLOOD(Performed 12/09/2016) * COMPREHENSIVE METABOLIC PANEL(Performed 12/09/2016) * CBC W AUTO DIFFERENTIAL(Performed 12/09/2016) * MAGNESIUM BLOOD(Performed 12/09/2016) * COMPREHENSIVE METABOLIC PANEL(Performed 12/09/2016) * CBC W AUTO DIFFERENTIAL(Performed 12/09/2016) * COMPREHENSIVE METABOLIC PANEL(Performed 12/09/2016) * CBC W AUTO DIFFERENTIAL(Performed 12/09/2016) * XR CHEST 1VW PORTABLE(Performed 12/09/2016) Performed for Elevated blood pressure reading * COMPREHENSIVE METABOLIC PANEL(Performed 12/08/2016) * CBC W AUTO DIFFERENTIAL(Performed 12/08/2016) * HAPTOGLOBIN(Performed 12/08/2016) Performed for Elevated blood pressure reading * LDH BLOOD(Performed 12/08/2016) Performed for Elevated blood pressure reading * COMPREHENSIVE METABOLIC PANEL(Performed 12/08/2016) Performed for Elevated blood pressure reading * CBC W AUTO DIFFERENTIAL(Performed 12/08/2016) Performed for Elevated blood pressure reading * COMPREHENSIVE METABOLIC PANEL(Performed 12/07/2016) Performed for Hypertension affecting , third trimester (HCC) * CBC W AUTO DIFFERENTIAL(Performed 12/07/2016) Performed for Hypertension affecting , third trimester (HCC) * SONOGRAM - COMPLETE(Performed 12/07/2016) * TYPE + SCREEN PANEL(Performed 12/07/2016) * HAPTOGLOBIN(Performed 12/07/2016) Performed for Elevated blood pressure reading, Hypertension affecting , third trimester (HCC) * LDH BLOOD(Performed 12/07/2016) Performed for Elevated blood pressure reading, Hypertension affecting , third trimester (HCC) * COMPREHENSIVE METABOLIC PANEL(Performed 12/07/2016) * CBC W AUTO DIFFERENTIAL(Performed 12/07/2016) * BLOOD TYPE VERIFICATION(Performed 12/07/2016) * URINE MICROSCOPIC ONLY REFLEX TO CULTURE(Performed 12/07/2016) * URINALYSIS REFLEX MICROSCOPIC REFLEX CULTURE(Performed 12/07/2016) * PROTEIN CREATININE RATIO URINE RANDOM PNL(Performed 12/07/2016) * CHLAMYDIA + GC AMPLIFIED PROBE(Performed 12/07/2016) Results * STREP A SCREEN - POINT OF CARE (AMB) STL (11/27/2017) Only the most recent of2 resultswithin the time period is included. Strep A Rapid POCT Negative Negative Strep A Internal Control Present Lot # [id number] Expiration Date 05/09/2019 Throat ENTIRE THROAT (SURFACE REGION OF NECK) / Unknown 11/27/2017 [facility] - POINT OF CARE ORDERABLES * IMAGING/RADIOLOGY/XRAY RESULTS ORDER (12/16/2016 11:56 AM CDT) Anatomical Region Laterality Modality Other Narrative 12/16/2016 11:56 AM CDT Ordered by an unspecified provider. Scanned Document IMAGING * LAB RESULTS ORDER (12/16/2016 11:23 AM CDT) Narrative 12/16/2016 11:23 AM CDT Ordered by an unspecified provider. Scanned Document LAB - THERAPEUTIC DR LOPEZ MONITORING ORDERABLES * (ABNORMAL) CBC W AUTO DIFFERENTIAL (12/16/2016 10:55 AM CDT) Only the most recent of20 resultswithin the time period is included. WBC 11.9(H) 4.4 - 10.7 x10E9/L 12/16/2016 11:07 AM CDT [facility] WBC Corrected x10E9/L 12/16/2016 11:07 AM CDT [facility] RBC 3.36(L) 3.80 - 5.20 x10E12/L 12/16/2016 11:07 AM CDT [facility] Hemoglobin 10.3(L) 12.0 - 15.6 gm/dL 12/16/2016 11:07 AM CDT [facility] Hematocrit 31.5(L) 35.9 - 45.5 % 12/16/2016 11:07 AM CDT [facility] MCV 93.8 80.7 - 98.3 fl 12/16/2016 11:07 AM CDT [facility] MCH 30.7 26.7 - 34.0 pg 12/16/2016 11:07 AM CDT [facility] MCHC 32.7 30.8 - 35.9 gm/dL 12/16/2016 11:07 AM CDT [facility] Platelet Count 211 153 - 416 x10E9/L 12/16/2016 11:07 AM CDT [facility] RDW-CV 14.6 12.1 - 14.9 % 12/16/2016 11:07 AM CDT [facility] MPV 10.6 9.4 - 12.9 fl 12/16/2016 11:07 AM CDT [facility] Neutrophils % 59.1 44.0 - 73.0 % 12/16/2016 11:07 AM CDT [facility] Lymphocytes % 23.9 20.0 - 43.0 % 12/16/2016 11:07 AM CDT [facility] Monocytes % 7.7 5.0 - 13.0 % 12/16/2016 11:07 AM CDT [facility] Eosinophils % 4.1 0.0 - 6.0 % 12/16/2016 11:07 AM CDT [facility] Basophils % 0.7 0.0 - 2.0 % 12/16/2016 11:07 AM CDT [facility] Immature Granulocytes 4.5(H) 0 - 1 % 12/16/2016 11:07 AM CDT [facility] Neutrophil Absolute 7.02 2.01 - 7.14 x10E9/L 12/16/2016 11:07 AM CDT [facility] Lymphocytes Absolute 2.84 1.07 - 3.94 x10E9/L 12/16/2016 11:07 AM CDT [facility] Monocytes Absolute 0.91 0.26 - 1.07 x10E9/L 12/16/2016 11:07 AM CDT [facility] Eosinophils Absolute 0.49(H) 0 - 0.47 x10E9/L 12/16/2016 11:07 AM CDT [facility] Basophils Absolute 0.08 0 - 0.08 x10E9/L 12/16/2016 11:07 AM CDT [facility] Immature Granulocytes Absolute 0.54(H) 0.00 - 0.06 x10E9/L 12/16/2016 11:07 AM CDT [facility] nRBC Auto 0 /100 WBC 12/16/2016 11:07 AM T [facility] Blood BLOOD SPECIMEN / Unknown Venipuncture / Unknown 12/16/2016 10:55 AM CDT 12/16/2016 11:02 AM CDT Jeniffer Daniels MD LAB - HEMATOLOGY ORD ERABLES [facility] [address] [place] [address] * (ABNORMAL) COMPREHENSIVE METABOLIC PANEL (12/16/2016 10:55 AM CDT) Only the most recent of20 resultswithin the time period is included. Glucose 74 74 - 106 mg/dL 12/16/2016 11:29 AM CDT [facility] Sodium 139 136 - 145 mmol/L 12/16/2016 11:29 AM CDT [facility] Potassium 3.9 3.5 - 5.1 mmol/L 12/16/2016 11:29 AM CDT [facility] Chloride 104 98 - 107 mmol/L 12/16/2016 11:29 AM CDT [facility] CO2 25 22 - 31 mmol/L 12/16/2016 11:29 AM CDT [facility] Calcium 8.6 8.5 - 10.1 mg/dL 12/16/2016 11:29 AM CDT [facility] Anion Gap 10 8 - 16 mmol/L 12/16/2016 11:29 AM CDT [facility] BUN 12 7 - 21 mg/dL 12/16/2016 11:29 AM CDT [facility] Creatinine 0.79 0.50 - 1.30 mg/dL 12/16/2016 11:29 AM CDT [facility] Alkaline Phosphatase 141(H) 38 - 126 U/L 12/16/2016 11:29 AM CDT [facility] ALT 52 13 - 61 U/L 12/16/2016 11:29 AM CDT [facility] AST 19 5 - 40 U/L 12/16/2016 11:29 AM CDT [facility] Protein Total 6.2(L) 6.4 - 8.2 gm/dL 12/16/2016 11:29 AM CDT [facility] Albumin 2.5(L) 3.4 - 5.0 gm/dL 12/16/2016 11:29 AM CDT [facility] Bilirubin Total 0.2 0.2 - 1.0 mg/dL 12/16/2016 11:29 AM CDT [facility] eGFR by MDRD >60 >60 mL/min/1.7 3m2 12/16/2016 11:29 AM CDT [facility] eGFR by MDRD >60 >60 mL/min/1.7 3m2 12/16/2016 11:29 AM CDT [facility] Blood BLOOD SPECIMEN / Unknown Venipuncture / Unknown 12/16/2016 10:55 AM CDT 12/16/2016 11:02 AM CDT Jeniffer Daniels MD LAB - CHEMISTRY LAUREN ALEMAN [facility] Organization Address City/State/ZIP Co de Phone Number [facility] [address] [place] [address] * TYPE + SCREEN PANEL (12/11/2016 7:22 AM CDT) Only the most recent of2 resultswithin the time period is included. Pathologist [facility] ABO A 12/11/2016 8:18 AM CDT [facility] Rh Type Positive 12/11/2016 8:18 AM CDT [facility] Comment:History check perfor med. No retype required. Antibody Screen Negative 12/11/2016 8:18 AM CDT [facility] Blood Bank BLOOD SPECIMEN / Unknown Lab Venipuncture / Unknown 12/11/2016 7:22 AM CDT 12/11/2016 7:28 AM CDT Marina Johnson MD LAB - BLOOD BANK ORD ERAGIOVANNI Performing Organization Address City/[facility] Co de Phone Number [facility] [address] [place] [address] * (ABNORMAL) SLIDE SCAN HEMATOLOGY (12/11/2016 7:22 AM CDT) Only the most recent of4 resultswithin the time period is included. [facility] Platelet Estimation Decreased (A) Normal, Adequate platelets 12/11/2016 8:31 AM CDT [facility] Blood BLOOD SPECIMEN / Unknown Lab Venipuncture / Unknown 12/11/2016 7:22 AM CDT 12/11/2016 7:28 AM CDT Alisia Yates MD LAB - HEMATOLOGY ORD ERABLES [facility] [address] [place] [address] * GENTAMICIN LEVEL RANDOM (12/10/2016 4:50 PM CDT) Pathologist [facility] Gentamicin Random 4.3 ug/mL 12/10/2016 5:47 PM CDT [facility] Blood BLOOD SPECIMEN / Unknown Lab Venipuncture / Unknown 12/10/2016 4:50 PM CDT 12/10/2016 4:56 PM CDT Marina Johnson MD LAB - CHEMISTRY LAUREN ALEMAN Performing Organization Address City/[facility]/ZIP Co de Phone Number [facility] [address], [place] [phone] * PT PTT PANEL (12/10/2016 1:13 PM CDT) Pathologist [facility] PT 9.6 9.5 - 11.6 sec 12/10/2016 1:44 PM CDT [facility] INR 0.9 0.9 - 1.1 12/10/2016 1:44 PM CDT [facility] PTT 24.8 21.0 - 32.0 sec 12/10/2016 1:44 PM CDT [facility] Blood BLOOD SPECIMEN / Unknown Lab Venipuncture / Unknown 12/10/2016 1:13 PM CDT 12/10/2016 1:19 PM CDT Narrative [facility] - 12/10/2016 1:44 PM CDT Conventional Warfarin Anticoagulant Therapy: INR Reference Range: 2.0-3.0 Intensive Warfarin Anticoagulant Therapy: INR Reference Range: 2.5-3.5 Heparin Therapeutic Range for PTT: 47.7 - 68.6 seconds. Mehdi Cloud MD LAB - COAGULATION OR DERABLES Performing Organization Address [facility] Co de Phone Number [facility] [address] [place] [address] * FIBRINOGEN ACTIVITY (12/10/2016 1:13 PM CDT) [facility] Fibrinogen 338 200 - 400 mg/dL 12/10/2016 1:44 PM CDT [facility] Blood BLOOD SPECIMEN / Unknown Lab Venipuncture / Unknown 12/10/2016 1:13 PM CDT 12/10/2016 1:19 PM CDT Mehdi Cloud MD LAB - COAGULATION OR DERABLES Performing Organization Address [facility] Co de Phone Number [facility] [address] [place] [address] * GROSS + MICRO EXAM (STL) (12/10/2016 4:36 AM CDT) [facility] Case Report Surgical Pathology Report Case: [id number] Authorizing Provider: Dolly Sanchez MD Collected: 12/10/2016 04:36 AM Ordering Location: [address] Received: 12/12/2016 07:45 AM Pathologist: Nasim Moran MD Specimen: Placenta 12/16/2016 7:44 PM T [facility] Final Diagnosis 1. Placenta, delivery: -- Third trimester placenta -- No evidence of villitis -- Small area of perivillous thrombi and infarcted villi (less than 5% of the total placental parenchyma) -- No evidence of chorioamnionitis -- 3-vessel umbilical cord with no evidence of vasculitis or funisitis SSD 12/16/2016 7:44 PM [facility] Gross Description The specimen is labeled Edilma Velasquez, and placenta. It is a 380 gm soto discoid placenta with attached membranes and umbilical cord, approximately 20.1 x 17 x 2.5 cm. The cord inserts 4 cm from the nearest placental edge. It has three blood vessels and measures 17.1 cm in length and up to 2.1 cm in diameter. The membranes are semitranslucent, shiny wrinkled and they rupture marginally. The surface displays a dusky purplish arriaga appearance. The maternal surface displays slightly disrupted cotyledons at one edge, covering an area of about 4 cm, where there is some loosely adherent blood clot on the surface. The cut surfaces display scattered yellowish, partially indurated and solid possible infarcts up to about 1.5 cm that abut both the maternal and surfaces. Additionally, there is a 1.5 cm hemorrhagic cyst-like space in about the midportion of the specimen. Brand Development Manager sections of the specimen are submitted in cassettes A1 through A3. LL/rtc 12/16/2016 7:44 PM [facility] Microscopic Description Placental disc, membrane, and umbilical cord examined. 12/16/2016 7:44 PM [facility] Disclaimer All histochemical and/or immunohistochemical results are interpreted with controls that demonstrate appropriate staining reactions before reporting results. Note on use of immunocytochemistry reagents: This test was developed and its performance characteristic determined by [facility], Department of Laboratory Medicine. It has not been cleared or approved by the U.S. Food and Drug Administration (FDA). The FDA has determined that such clearance or approval is not necessary. The test is used for clinical purpose. It should not be regarded as investigational or for research. This laboratory is certified to perform high complexity testing. 12/16/2016 7:44 PM CDT [facility] Embedded Images 12/16/2016 7:44 PM CDT [facility] Pathology/Cytolo gy ENTIRE PLACENTA / Unknown 12/10/2016 4:36 AM CDT 12/12/2016 7:45 AM CDT Dolly Sanchez MD LAB - PATHOLOGY/CYTO LOGY ORDERABLES [facility] [address] [place] [address] * (ABNORMAL) BLOOD GASES CORD ANNA MARIE (ISTAT) (12/10/2016 3:12 AM CDT) pH Cord Venous POCT 7.38 7.28 - 7.40 pH 12/10/2016 3:16 AM CDT [facility] pCO2 Cord Venous POCT 36 35 - 45 mmHg 12/10/2016 3:16 AM CDT [facility] pO2 Cord Venous POCT 21(L) 22 - 33 mmHg 12/10/2016 3:16 AM CDT [facility] HCO3 Cord Arterial POCT 21(L) 22 - 24 mmol/L 12/10/2016 3:16 AM CDT [facility] BE Cord Venous POCT Calc -3 -6.4 - 1.6 mmol/L 12/10/2016 3:16 AM CDT [facility] TCO2 Cord Venous POCT 22 22 - 30 mmol/L 12/10/2016 3:16 AM T [facility] O2 Saturation % Cord Venous Calc POCT 33 % 12/10/2016 3:16 AM CDT [facility] Site CORD ART 12/10/2016 3:16 AM CDT [facility] Sample iSTAT CORD V 12/10/2016 3:16 AM CDT [facility] Blood CORD BLOOD SPECIMEN / Unknown 12/10/2016 3:12 AM CDT 12/10/2016 3:16 AM CDT Livier Alfaro MD LAB - POINT OF CARE ORDERABLES Performing Organization Address [facility] Co de Phone Number [facility] [address] [place] [place] [phone] * (ABNORMAL) BLOOD GASES CORD ART (ISTAT) (12/10/2016 3:07 AM CDT) pH Cord Arterial POCT 7.34 7.20 - 7.34 pH 12/10/2016 3:16 AM CDT [facility] pCO2 Cord Arterial POCT 41.3(L) 45 - 55 mmHg 12/10/2016 3:16 AM CDT [facility] pO2 Cord Arterial POCT 16 12 - 25 mmHg 12/10/2016 3:16 AM CDT [facility] HCO3 Cord Arterial POCT 22.5 22 - 24 mmol/L 12/10/2016 3:16 AM CDT [facility] BE Cord Arterial POCT -3(L) -2.9 - 8.3 mmol/L 12/10/2016 3:16 AM CDT [facility] TCO2 Cord Arterial POCT 24 mmol/L 12/10/2016 3:16 AM CDT [facility] O2 Saturation Cord Art % Calc POCT 20 % 12/10/2016 3:16 AM CDT [facility] Site CORD ART 12/10/2016 3:16 AM CDT [facility] Sample iSTAT CORD A 12/10/2016 3:16 AM CDT [facility] Blood CORD BLOOD SPECIMEN / Unknown 12/10/2016 3:07 AM CDT 12/10/2016 3:16 AM CDT Livier Alfaro MD LAB - POINT OF CARE ORDERABLES [facility] [address] [place] [phone] * (ABNORMAL) MAGNESIUM BLOOD (12/09/2016 11:21 PM CDT) Only the most recent of3 resultswithin the time period is included. Magnesium 6.1(HH) 1.7 - 2.3 mg/dL 12/10/2016 12:23 AM CDT [facility] Blood BLOOD SPECIMEN / Unknown Venipuncture / Unknown 12/09/2016 11:21 PM CDT 12/09/2016 11:44 PM CDT Dolly Sanchez MD LAB - CHEMISTRY LAUREN ALEMAN Performing Organization Address City/[facility]/ZIP Co de Phone Number [facility] [address] [place] [address] * XR CHEST 1VW PORTABLE (12/09/2016 2:45 AM CDT) Anatomical Region Laterality Modality Chest Radiographic Iveth ging 12/09/2016 8:08 AM CDT Impressions 12/09/2016 8:09 AM CDT Low lung volumes without consolidation or definite edema. Narrative 12/09/2016 8:09 AM CDT Examination: Chest single view History: Chest pain Findings: A single portable view of the chest was performed without comparison. There is no pneumonic consolidation, pleural effusion, or pneumothorax. Lung volumes are low. The abdomen is shielded. Procedure Note Ted Hernandez MD - 12/09/2016 Examination: Chest single view History: Chest pain Findings: A single portable view of the chest was performed without comparison. There is no pneumonic consolidation, pleural effusion, or pneumothorax. Lung volumes are low. The abdomen is shielded. IMPRESSION Low lung volumes without consolidation or definite edema. Deedee Arriaga MD DIAGNOSTIC IMAGING O RDERABLES * (ABNORMAL) LDH BLOOD (12/08/2016 4:42 AM CDT) Only the most recent of2 resultswithin the time period is included. LDH 442(H) 100 - 200 U/L 12/08/2016 5:49 AM CDT [facility] Blood BLOOD SPECIMEN / Unknown Lab Venipuncture / Unknown 12/08/2016 4:42 AM CDT 12/08/2016 5:15 AM CDT Gissell Brooks MD LAB - CHEMISTRY LAUREN ALEMAN Performing Organization Address City/[facility]/ZIP Co de Phone Number [facility] [address], [place] [phone] * (ABNORMAL) HAPTOGLOBIN (12/08/2016 4:42 AM CDT) Only the most recent of2 resultswithin the time period is included. Haptoglobin 16(L) 30 - 200 mg/dL 12/08/2016 6:12 AM CDT [facility] Blood BLOOD SPECIMEN / Unknown Lab Venipuncture / Unknown 12/08/2016 4:42 AM CDT 12/08/2016 5:15 AM CDT Gissell Brooks MD LAB - CHEMISTRY LAUREN ALEMAN [facility] Organization Address City/State/ZIP Co de Phone Number [facility] [address] [place] [address] * SONOGRAM - COMPLETE (12/07/2016 4:01 PM CDT) Anatomical Region Laterality Modality Other 12/07/2016 4:01 PM CDT Narrative 12/09/2016 4:54 PM CDT [facility] PHONE: FAX: Pat. Name: EDILMA VELASQUEZ Pat. No: [id number] Study Date: 12/07/2016 4:01pm , Age: 05 1995, 21 Pregnancies: 1 Height: 62 in Weight: 145 lb LMP: Unknown GA by US: 31w5d GA Selected: 33w5d (From Known E) ROSA: 01/20/2017 Referring MD: Kang Dykes MD Wire Splicer: Gianna Ohara RDMS CPT4: 62338, 10852, 29010, 73376, 08095 BMI: 26.52 Hist/Ind: HELLP Syndrome IUGR MEASUREMENTS & AGE GROWTH EVALUATION Measurement GA Range Srce %for GA Ratios ----- ---- ------- BPD 8.0 cm 32w0d (08d5y-16q6y) Hadl BPD 26% FL/BPD 0.81 (0.71 - 0.87) HC 28.5 cm 31w2d (25d1e-85w4l) Hadl HC 14% FL/AC 0.25 (0.20 - 0.24* AC 26.1 cm 30w2d (54e0d-37w2k) Hadl AC <05 HC/AC 1.09 (0.95 - 1.13) FL 6.5 cm 33w2d (26y7v-18n8s) Hadl FL 44% CI 0.80 (0.70 - 0.86) HL 5.6 cm 32w4d (40r1j-07t1h) Juni HL 30% GA for sonogram 31w5d (13k7f-65g8r) Weight Estimate: based on (BPD,HC,AC,FL) Avg Weight: 1778 gm (0775-[address]08) Hadlo : 3lbs, 14oz Normal: 2316 gm (3883-2735) Hadlo Wt% <10 for 33w5d Heart Rate: 132 bpm Amniotic Fluid Index: 17.7cm (08.2-24.7) Q1: 5.1cm Q2: 4.3cm Q3: 3.8cm Q4: 4.5cm Biophysical Profile: 10/04 Breathin Tone: 2 Movement: 2 AFV: 2 DOPPLER Umbilical - Mid Cord S/D 4.00(1.75 - 3.71) * PI 1.31 (0.63 - 1.21) * Middle Cerebral Artery PSV PI 2.13 (1.54 - 2.76) Med PSV 48.2cm/s MoM 1.05(<1.5) CLINICAL SUMMARY Study Number: 1 A soto fetus is identified in cephalic presentation. The measurements today are consistent with IUGR with growth at the 4th percentile. The ROSA selected is based on a prior ultrasound examination. The amniotic fluid volume is within normal limits. The placenta is anterior. No major malformations are seen. The patient was advised that ultrasound does not allow detection of all structural or chromosomal abnormalities. TESTING: The biophysical profile score is 8/8 DOPPLER STUDIES: The umbilical artery Doppler S/D ratio is 4.0, which is elevated for gestational age The umbilical PI is 1.31, which is elevated for gestational age The MCA PI is 2.13, which is within normal limits for gestational age The ductus venosus is visualized and appears to have a positive A wave form IMPRESSION: Single, live IUP at 33w5d growth restriction with Doppler evidence of placental resistance Normal AFV No major malformations seen within the limits of ultrasound RECOMMEND: Follow up per inpatient team Results discussed with inpatient team Thank you for allowing us the opportunity to care for your patient cc: Inpatient at time of study Rebel Oliveira MD <Electronic Signature> 12/09/2016 04:53pm Gissell Brooks MD [facility] ORDERABLES * BLOOD TYPE VERIFICATION (12/07/2016 2:36 PM CDT) ABO A 12/07/2016 3:39 PM CDT [facility] Rh Type Positive 12/07/2016 3:39 PM CDT [facility] Blood Bank BLOOD SPECIMEN / Unknown Lab Venipuncture / Unknown 12/07/2016 2:36 PM CDT 12/07/2016 3:05 PM CDT Livier Alfaro MD LAB - BLOOD BANK ORD ERABLES Performing Organization Address [facility] Co de Phone Number [facility] [address] [place] [address] * (ABNORMAL) URINALYSIS MICROSCOPIC ONLY W/REFLEX CULTURE (12/07/2016 2:08 PM CDT) Epithelial Cell UA 5-10(A) 0-2, 2-5 # /hpf 12/07/2016 2:53 PM CDT [facility] Urine URINE SPECIMEN OBTAINED BY CLEAN CATCH PROCEDURE / Unknown Collection / Unknown 12/07/2016 2:08 PM CDT 12/07/2016 2:24 PM CDT Gissell Brooks MD LAB - URINALYSIS ORD ERABLES Performing Organization Address [facility] Co de Phone Number [facility] [address] [place] [address] * (ABNORMAL) URINALYSIS ROUTINE W/REFLEX TO CULTURE (12/07/2016 2:08 PM CDT) Color UA Teresa(A) Straw, Yellow, Dark Yellow 12/07/2016 2:46 PM CDT [facility] Clarity UA Clear 12/07/2016 2:46 PM CDT [facility] Specific [place] UA >1.030(H) 1.005 - 1.030 12/07/2016 2:46 PM CDT [facility] pH UA 5.5 5.0 - 8.0 pH 12/07/2016 2:46 PM CDT [facility] Protein UA 2+(A) Negative 12/07/2016 2:46 PM CDT [facility] Blood UA 2+(A) Negative 12/07/2016 2:46 PM CDT [facility] Leukocyte UA Negative Negative 12/07/2016 2:46 PM CDT [facility] Nitrite UA Negative Negative 12/07/2016 2:46 PM CDT [facility] Glucose UA Negative Negative 12/07/2016 2:46 PM CDT [facility] Ketone UA 1+(A) Negative 12/07/2016 2:46 PM CDT [facility] Bilirubin UA Negative Negative 12/07/2016 2:46 PM CDT [facility] Urobilinogen UA 0.2 0.1 - 1.0 EU/dL 12/07/2016 2:46 PM CDT [facility] WBC UA Auto 5-10(A) 0-2, 2-5 # /hpf 12/07/2016 2:46 PM CDT [facility] RBC UA Auto 2-5 0-2, 2-5 # /hpf 12/07/2016 2:46 PM CDT [facility] Epithelial Cell UA Auto 5-10(A) 0-2, 2-5 # /hpf 12/07/2016 2:46 PM CDT [facility] Hyaline Casts UA Auto Reflex to manual(A) 0 - 2 #/lpf 12/07/2016 2:46 PM CDT [facility] Reflex Status Culture not indicated 12/07/2016 2:46 PM CDT [facility] Urine URINE SPECIMEN OBTAINED BY CLEAN CATCH PROCEDURE / Unknown Collection / Unknown 12/07/2016 2:08 PM CDT 12/07/2016 2:24 PM CDT Gissell Brooks MD LAB - URINALYSIS ORD ERABLES [facility] [address] [place] [address] * CHLAMYDIA + GC AMPLIFIED PROBE (12/07/2016 2:08 PM CDT) Chlamydia Amplified Probe Negative Negative 12/08/2016 1:36 PM CDT [facility] GC Amplified Probe Negative Negative 12/08/2016 1:36 PM CDT [facility] Microbiology ENTIRE ENDOCERVIX / Unknown Collection / Unknown 12/07/2016 2:08 PM CDT 12/07/2016 2:21 PM CDT Narrative [facility] - 12/08/2016 1:36 PM CDT Results based on detection/no detection of ribosomal RNA by amplified method. Gissell Brooks MD LAB - MICROBIOLOGY O RDERABLES [facility] [address] [place], [place] [address], [facility] [phone] * PROTEIN CREATININE RATIO URINE RANDOM PNL (12/07/2016 2:08 PM CDT) Protein Urine 975.0 mg/dL 12/07/2016 3:00 PM CDT [facility] Creatinine Urine 150 mg/dL 12/07/2016 3:00 PM CDT [facility] Protein/Creatin ine Ratio Urine 6.50 12/07/2016 3:00 PM CDT [facility] Urine URINE SPECIMEN OBTAINED BY CLEAN CATCH PROCEDURE / Unknown Collection / Unknown 12/07/2016 2:08 PM CDT 12/07/2016 2:24 PM CDT Gissell Brooks MD LAB - URINE CHEMISTR Y ORDERABLES [facility] [address] [place] [address]
--- OUTSIDE RECORDS SUMMARY | 2024-05-02 11:31 | XMS_ITS | Referral Summary ---
Author Organization [facility] Address [address] [place] [address] Care Team Providers Care Education Rep Name Role Phone Unavailable Primary Care Provider Unavailabl e Source Comments [facility],non-owned Affiliates and Associated Physician Practices is amultiple site organization consisting of ambulatory clinics and hospital sitesin [place], [place], [place] and [place]. This disclosure is being madepursuant to the Care Everywhere program and may not contain all information available regarding this patient. Last updated 17.[facility] Allergies Active Allergy Reactions Criticality Noted Date [...] 0.5 ML (IIV4) 12/14/2016 TDAP (7yrs+) 12/14/2016 Social History Tobacco Use Types Packs/Day Years [...] Mass Index 30.73 11/27/2017 3:11 PM CDT Functional Status Functional Status Response Date of Assess ment Is person deaf or have serious hearing difficult y? No 12/14/2016 Is person blind or have serious difficulty seein g? No 12/14/2016 Does person have serious dif ficulty walking/climbing stairs? No 12/14/2016 Does person have difficulty dressing/bathing? No 12/14/2016 Does person have difficulty doing errands alone? No 12/14/2016 Cognitive Status Response Date of Assessm ent Does person have difficulty concentrating/remembering/making decisions? No 12/14/2016 Plan of Treatment Not on file Advance Directives * Full Code (Latest Code Status on File) Date Activated Date Inactivated Comments 12/08/2016 12:51 PM 12/14/2016 2:17 PM * Full Code Date Activated Date Inactivated Comments 12/07/2016 1:17 PM 12/08/2016 12:51 PM
[2024-05-02 11:42] LABS: Alanine Aminotransferase 14 U/L (6-35); Albumin Level 4.4 g/dL (3.5-5.1); Alkaline Phosphatase 55 U/L (38-126); Anion Gap 9 mmol/L (4-12); Aspartate Amino Transferase 20 U/L (14-36); Bilirubin,Total 0.6 mg/dL (0.2-1.3); Blood Urea Nitrogen 12 mg/dL (7-17); Calcium 9.4 mg/dL (8.4-10.2); Carbon Dioxide 28 mmol/L (22-30); Chloride 102 mmol/L (98-107); Cholesterol 171 mg/dL (0-200); Estimated Glomerular Filt Rate > 60; Glucose 92 mg/dL (65-110); HDL Direct 45 mg/dL; Potassium 4.1 mmol/L (3.4-5.0); Sodium 139 mmol/L (137-145); Triglycerides 120 mg/dL (<150)
[2024-05-02 11:43] LABS: Rheumatoid Factor < 12.0 IU/ML (<12)
[2024-05-02 11:52] LABS: LDL Cholesterol Direct 102 mg/dL
[2024-05-02 12:08] LABS: Vitamin D 25 Hydroxy 80.9 ng/mL
[2024-05-03 18:28] LABS: Red Blood Cell Folate 477 ng/mL RBC (>280)
== END 2024-05-02 10:07 | disposition home or self-care (01) ==
PROVIDERS: PCP Emergency Medicine; Visit Provider Emergency Medicine
DX: E78.5 Hyperlipidemia, unspecified (principal); I10 Essential (primary) hypertension; E55.9 Vitamin D deficiency, unspecified; R76.0 Raised antibody titer; D52.0 Dietary folate deficiency anemia; R53.83 Other fatigue; M06.9 Rheumatoid arthritis, unspecified
CPT/HCPCS: 36415; 80053; 80061; 82306; 82607; 82747; 84443; 85025; 86038; 86039; 86430

== ENCOUNTER 2024-09-12 06:57 | Outpatient (CLI) | payer OTHER, SELFPAY ==
--- OUTSIDE RECORDS SUMMARY | 2024-09-12 07:00 | XMS_ITS | Data Portability ---
[facility] Address [address] [place] [address] Assessment No assessment recorded. Plan of Treatment Reminders Order Date Submit Date Provider Last Modified By Organization Details Last Modified Time Details Appointments None recorded. Lab bacterial vaginosis panel, vaginal 2019 020 [facility] (Centralized Electronic Ordering - All Locations), Patient Can Go To The Location Of Their Choice, [id number] 0 16:09:12 culture, vaginal/r ectal, streptoco ccus group B 2019 020 [facility] (Centralized Electronic Ordering - All Locations), Patient Can Go To The Location Of Their Choice, [id number] 0 16:09:15 hepatitis panel (A+B+C), acute, serum 2019 020 [employer] [facility], [address] [facility], [facility] [address], [place], [address], 0 20:58:12 hepatitis B surface Ab, qualitati ve, serum 2019 020 [employer] [facility], [address] [facility], [address], [place], [address], 0 19:34:58 HIV 1+2 AB + HIV 1 p24 Ag, qualitati ve immunoass ay, serum 2019 020 [employer], [address] Edin Knowles, [address], [address], 0 19:34:58 HSV 2 IgG Ab, QN, IA, serum 2019 [facility] Patient Can Go To The Location Of Their Choice, [id number] 0 19:34:58 RPR (rapid plasma reagin), serum 2019 [facility] Patient Can Go To The Location Of Their Choice, [id number] 0 19:34:58 culture, urine 2019 [facility], [address] [place] [address], [facility] [address], [place], [address], 0 19:34:59 bacterial vaginosis panel, vaginal 2019 [facility] (Centralized Electronic Ordering - All Locations), Patient Can Go To The Location Of Their Choice, [id number] 0 10:12:45 culture, vaginal/r ectal, streptoco ccus group B 2019 [facility] (Centralized Electronic Ordering - All Locations), Patient Can Go To The Location Of Their Choice, [id number] 0 10:12:45 hepatitis panel (A+B+C), acute, serum 2019 021 [facility], [address] [place] [address], [address], [place], [address], 1 11:20:19 hepatitis B surface Ab, qualitati ve, serum 2019 021 [facility] [facility], [address] [place] [address], [address], [place], [address], 1 11:20:19 HIV 1+2 AB + HIV 1 p24 Ag, qualitati ve immunoass ay, serum 2019 021 [facility], [address] Edin Knowles, [address], [place], [address], 1 11:20:20 HSV 2 IgG Ab, QN, IA, serum 2019 020 [facility] (Centralized Electronic Ordering - All Locations), Patient Can Go To The Location Of Their Choice, [address] 0 10:12:46 RPR (rapid plasma reagin), serum 2019 021 [facility] (Centralized Electronic Ordering - All Locations), Patient Can Go To The Location Of Their Choice, [address] 1 11:20:20 culture, urine 2019 021 [employer] [facility], [address], [address], [place], [place], [address], 1 11:20:20 bacterial vaginosis + vaginitis panel, vaginal 2018 019 [facility], [address] [address], [address], [place], [address], 9 20:08:01 HSV (1+2) DNA, qual, PCR, unspecifi ed specimen 2018 019 [facility], [address], [address], [place], [address], 9 20:08:02 culture, vaginal/r ectal, streptoco ccus group B 2018 019 [facility], [address], [address], [place], [address], 9 20:08:02 urinalysi s, dipstick 2018 Tre leslie In-Office Order, Internal Use Only DO Not Attach Compendium DO Not Attach Compendium, Do Not Delete/merge, [id number] 9 12:46:35 test, urine 2018 019 anuj In-Office Order, Internal Use Only DO Not Attach Compendium DO Not Attach Compendium, Do Not Delete/merge, [id number] 9 12:46:35 culture, wound 2017 018 [facility], [address] [facility], [address], [place], [address], 8 14:10:27 Referral None recorded. Procedures None recorded. Surgeries None recorded. Imaging None recorded. Medication Orders multivita min tablet 2019 [id number], [address], [id number], 0 10:01:28 Calcium with Vitamin D 600 mg-10 mcg (400 unit) tablet 2019 020 [facility][id number], [address], [id number], 0 10:01:27 multivita min tablet 2019 020 [facility] #18344, [address], [place], [place], [id number], 0 10:14:21 Calcium with Vitamin D 600 mg-10 mcg (400 unit) tablet 2019 020 [facility]39513, [address], [id number], 0 10:14:21 Calcium with Vitamin D3 600 mg (carbonat e)-10 mcg (400 unit) capsule 2018 019 [facility]77899, [address], [id number], 9 13:46:27 multivita min tablet 2018 019 INTERFACE [facility]16480, [address], [place], [place], [id number], 9 13:46:27 fluconazo le 150 mg tablet 2018 019 [facility] #51430, [address], [place], [place], [id number], 9 16:44:56 Cipro 500 mg tablet 2018 019 [facility] #26328, [address], [place], [place], [id number], 9 16:44:32 Keflex 500 mg capsule 2017 018 [email or web address] #25556, [address], [place], [place], [id number], 9 16:15:43 Patient TargetsNo targets recorded. Patient Instructions Encounter Date Encounter Id Patient Instructions Last Modified By Organization Details Last Modified Time 02/21/2018 [id number] infection after surgery: care instructions liseth Not available 02/21/2018 12:58:29 02/28/2018 [id number] candidiasis: care instructions mwasserman Not available 02/28/2018 16:44:52 infection after surgery: care instructions mwasserman Not available 02/28/2018 16:44:23 Reason for Referral None Reported. Results Created Date Observation Date Name Description Value Unit Range Abnormal Flag Note LastModifiedBy Organization Detail LastModifiedTime 03/22/1903/22/2018 pregn king test, urine HCG negati ve Not Available In-Office Order Internal Use Only DO Not Attach Compendium DO Not Attach Compendium, Do Not Delete/merge, [id number] 03/22/2018 13:54:59 03/22/1903/22/2018 urina lysis , dipst ick Leukocytes Small Not Available In-Offi ce Order Internal Use Only DO Not Attach Compendium DO Not Attach Compendium, Do Not Delete/merge, [id number] 03/22/2018 13:54:57 03/22/1903/22/2018 urina lysis , dipst ick Nitrite negati ve Not Available In-Office Order Internal Use Only DO Not Attach Compendium DO Not Attach Compendium, Do Not Delete/merge, [id number] 03/22/2018 13:54:57 03/22/1903/22/2018 urina lysis , dipst ick Urobilinogen .2 Not Available In-Of fice Order Internal Use Only DO Not Attach Compendium DO Not Attach Compendium, Do Not Delete/merge, [id number] 03/22/2018 13:54:57 03/22/1903/22/2018 urina lysis , dipst ick Protein Trace Not Available In-Office Order Internal Use Only DO Not Attach Compendium DO Not Attach Compendium, Do Not Delete/merge, [id number] 03/22/2018 13:54:57 03/22/1903/22/2018 urina lysis , dipst ick pH 6.5 Not Available In-Office Order Internal Use Only DO Not Attach Compendium DO Not Attach Compendium, Do Not Delete/merge, [id number] 03/22/2018 13:54:57 03/22/1903/22/2018 urina lysis , dipst ick Blood Negati ve Not Available In-Office Order Internal Use Only DO Not Attach Compendium DO Not Attach Compendium, Do Not Delete/merge, [id number] 03/22/2018 13:54:57 03/22/1903/22/2018 urina lysis , dipst ick Specific [place] 1.030 Not Available In-Off ice Order Internal Use Only DO Not Attach Compendium DO Not Attach Compendium, Do Not Delete/merge, 03/22/2018 13:54:57 03/22/1903/22/2018 urina lysis , dipst ick Ketone Negati ve Not Available In-Office Order Internal Use Only DO Not Attach Compendium DO Not Attach Compendium, Do Not Delete/merge, [id number] 03/22/2018 13:54:57 03/22/19 19 03/22/2018 urina lysis , dipst ick Bilirubin Negati ve Not Available In-Office Order Internal Use Only DO Not Attach Compendium DO Not Attach Compendium, Do Not Delete/merge, [id number] 03/22/2018 13:54:57 03/22/19 19 03/22/2018 urina lysis , dipst ick Glucose Negati ve Not Available In-Office Order Internal Use Only DO Not Attach Compendium DO Not Attach Compendium, Do Not Delete/merge, [id number] 03/22/2018 13:54:57 03/22/19 19 03/22/2018 urina lysis , dipst ick Appearance Clear Not Available In-Offi ce Order Internal Use Only DO Not Attach Compendium DO Not Attach Compendium, Do Not Delete/merge, [id number] 03/22/2018 13:54:57 03/22/1903/22/2018 urina lysis , dipst ick Color Yellow Not Available In-Office Order Internal Use Only DO Not Attach Compendium DO Not Attach Compendium, Do Not Delete/merge, [id number] 03/22/2018 13:54:57 01/25/20 18 01/24/2018 urina lysis , dipst ick Leukocytes Small Not Available In-Offi ce Order Internal Use Only DO Not Attach Compendium DO Not Attach Compendium, Do Not Delete/merge, [id number] 01/24/2018 14:42:19 01/25/20 18 01/24/2018 urina lysis , dipst ick Nitrite negati ve Not Available In-Office Order Internal Use Only DO Not Attach Compendium DO Not Attach Compendium, Do Not Delete/merge, [id number] 01/24/2018 14:42:19 01/25/20 18 01/24/2018 urina lysis , dipst ick Urobilinogen 1 Not Available In-Of fice Order Internal Use Only DO Not Attach Compendium DO Not Attach Compendium, Do Not Delete/merge, [id number] 01/24/2018 14:42:19 01/25/20 18 01/24/2018 urina lysis , dipst ick Protein Trace Not Available In-Office Order Internal Use Only DO Not Attach Compendium DO Not Attach Compendium, Do Not Delete/merge, [id number] 01/24/2018 14:42:19 01/25/20 18 01/24/2018 urina lysis , dipst ick pH 7.0 Not Available In-Office Order Internal Use Only DO Not Attach Compendium DO Not Attach Compendium, Do Not Delete/merge, [id number] 01/24/2018 14:42:19 01/25/20 18 01/24/2018 urina lysis , dipst ick Blood Negati ve Not Available In-Office Order Internal Use Only DO Not Attach Compendium DO Not Attach Compendium, Do Not Delete/merge, [id number] 01/24/2018 14:42:19 01/25/20 18 01/24/2018 urina lysis , dipst ick Specific [place] 1.020 Not Available In-Off ice Order Internal Use Only DO Not Attach Compendium DO Not Attach Compendium, Do Not Delete/merge, [id number] 01/24/2018 14:42:19 01/25/20 18 01/24/2018 urina lysis , dipst ick Ketone Negati ve Not Available In-Office Order Internal Use Only DO Not Attach Compendium DO Not Attach Compendium, Do Not Delete/merge, [id number] 01/24/2018 14:42:19 01/25/20 18 01/24/2018 urina lysis , dipst ick Bilirubin Negati ve Not Available In-Office Order Internal Use Only DO Not Attach Compendium DO Not Attach Compendium, Do Not Delete/merge, [id number] 01/24/2018 14:42:19 01/25/20 18 01/24/2018 urina lysis , dipst ick Glucose Negati ve Not Available In-Office Order Internal Use Only DO Not Attach Compendium DO Not Attach Compendium, Do Not Delete/merge, [id number] 01/24/2018 14:42:19 01/25/20 18 01/25/2018 CBC w/ auto diff WBC 9.1 x10e3 /uL 3.4-10 .8 Not Available [facility] ([facility]) [address] [facility], [place], [address], 01/25/2018 08:30:40 01/25/20 18 01/25/2018 CBC w/ auto diff RBC 3.69 x10e6 /uL 3.77-5 .28 below low normal Not Available [facility] ([facility]) [address] [facility] [place], [address], 01/25/2018 08:30:40 01/25/20 18 01/25/2018 CBC w/ auto diff hemoglobin 9.8 g/dL 11.1-1 5.9 below low normal Not Available [facility] ([facility]) [address] [facility], [place], [address], 01/25/2018 08:30:40 01/25/20 18 01/25/2018 CBC w/ auto diff hematocrit 29.8 % 34.0-4 6.6 below low normal Not Available [facility] ([facility]) [address] [facility], [place], [address], 01/25/2018 08:30:40 01/25/20 18 01/25/2018 CBC w/ auto diff MCV 81 fL 79-97 Not Available [facility] ([facility]) [address] [facility] [place], [address], 01/25/2018 08:30:40 01/25/20 18 01/25/2018 CBC w/ auto diff MCH 26.6 pg 26.6-3 3.0 Not Available [facility] ([facility]) [address] [facility] [place], [address], 01/25/2018 08:30:40 01/25/20 18 01/25/2018 CBC w/ auto diff MCHC 32.9 g/dL 31.5-3 5.7 Not Available [facility] ([facility]) [address] [facility] [place], [address], 01/25/2018 08:30:40 01/25/20 18 01/25/2018 CBC w/ auto diff RDW 14.5 % 12.3-1 5.4 Not Available [facility] ([facility]) [address] [facility] [place], [address], 01/25/2018 08:30:40 01/25/20 18 01/25/2018 CBC w/ auto diff platelets 208 x10e3 /uL 150-37 9 Not Available [facility] ([facility]) [address] [facility], [place], [address], 01/25/2018 08:30:40 01/25/20 18 01/25/2018 CBC w/ auto diff neutrophils 67 % not estab. Not Available [facility] ([facility]) [address] [facility], [place], [address], 01/25/2018 08:30:40 01/25/20 18 01/25/2018 CBC w/ auto diff lymphs 21 % not estab. Not Available [facility] ([facility]) [address] [facility], [place], [address], 01/25/2018 08:30:40 01/25/20 18 01/25/2018 CBC w/ auto diff monocytes 10 % not estab. Not Available [facility] ([facility]) [address] [facility], [place], [address], 01/25/2018 08:30:40 01/25/20 18 01/25/2018 CBC w/ auto diff eos 2 % not estab. Not Available [facility] ([facility]) [address] [facility], [place], [address], 01/25/2018 08:30:40 01/25/20 18 01/25/2018 CBC w/ auto diff basos 0 % not estab. Not Available [facility] ([facility]) [address] [facility], [place], [address], 01/25/2018 08:30:40 01/25/20 18 01/25/2018 CBC w/ auto diff immature cells CD MIXER Not Available [facility] ([facility]) [address] [facility], [place], [address], 01/25/2018 08:30:40 01/25/20 18 01/25/2018 CBC w/ auto diff neutrophils (absolute) 6.1 x10e3 /uL 1.4-7. 0 Not Available [facility] ([facility]) [address] [place], [address], 01/25/2018 08:30:40 01/25/20 18 01/25/2018 CBC w/ auto diff lymphs (absolute) 1.9 x10e3 /uL 0.7-3. 1 Not Available [facility] ([facility]) [address] [place], [address], 01/25/2018 08:30:40 01/25/20 18 01/25/2018 CBC w/ auto diff monocytes(ab solute) 0.9 x10e3 /uL 0.1-0. 9 Not Available [facility] ([facility]) [address] [place], [address], 01/25/2018 08:30:40 01/25/20 18 01/25/2018 CBC w/ auto diff eos (absolute) 0.2 x10e3 /uL 0.0-0. 4 Not Available [facility] ([facility]) [address] [place], [address], 01/25/2018 08:30:40 01/25/20 18 01/25/2018 CBC w/ auto diff baso (absolute) 0.0 x10e3 /uL 0.0-0. 2 Not Available [facility] ([facility]) [address] [place], [address], 01/25/2018 08:30:40 01/25/20 18 01/25/2018 CBC w/ auto diff immature granulocytes 0 % not estab. Not Available [facility] ([facility]) [address] [place], [address], 01/25/2018 08:30:40 01/25/20 18 01/25/2018 CBC w/ auto diff immature grans (abs) 0.0 x10e3 /uL 0.0-0. 1 Not Available [facility] ([facility]) [address] [facility] [place], [address], 01/25/2018 08:30:40 01/25/20 18 01/25/2018 CBC w/ auto diff NRBC CD MIXER Not Available [facility] ([facility]) [address], [address], 01/25/2018 08:30:40 01/25/20 18 01/25/2018 CBC w/ auto diff hematology comments: CD MIXER Not Available [facility] ([facility]) [address] [place], [address], 01/25/2018 08:30:40 01/25/20 18 01/25/2018 CMP, serum or plasm a glucose 87 mg/dL 65-99 Not Available [facility] ([facility]) [address] [place], [address], 01/25/2018 08:30:41 01/25/20 18 01/25/2018 CMP, serum or plasm a BUN 7 mg/dL 6-20 Not Available [facility] ([facility]) [address] [place], [address], 01/25/2018 08:30:41 01/25/20 18 01/25/2018 CMP, serum or plasm a creatinine 0.52 mg/dL 0.57-1 .00 below low normal Not Available [facility] ([facility]) [address] [place], [address], 01/25/2018 08:30:41 01/25/20 18 01/25/2018 CMP, serum or plasm a eGFR if nonafricn AM 138 mL/mi n/1.7 3 >59 Not Available [facility] ([facility]) [address] [place], [address], 01/25/2018 08:30:41 01/25/20 18 01/25/2018 CMP, serum or plasm a eGFR if africn AM 159 mL/mi n/1.7 3 >59 Not Available [facility] ([facility]) [address] [facility] [place], [address], 01/25/2018 08:30:41 01/25/20 18 01/25/2018 CMP, serum or plasm a BUN/creatini ne ratio 13 9-23 Not Available [facility] ([facility]) [address] [facility] [place], [address], 01/25/2018 08:30:41 01/25/20 18 01/25/2018 CMP, serum or plasm a sodium 137 mmol/ L 134-14 4 Not Available [facility] ([facility]) [address] [facility] [place], [address], 01/25/2018 08:30:41 01/25/20 18 01/25/2018 CMP, serum or plasm a potassium 4.3 mmol/ L 3.5-5. 2 Not Available [facility] ([facility]) [address] [place], [address], 01/25/2018 08:30:41 01/25/20 18 01/25/2018 CMP, serum or plasm a chloride 103 mmol/ L 96-106 Not Available [facility] ([facility]) [address] [facility], [place], [address], 01/25/2018 08:30:41 01/25/20 18 01/25/2018 CMP, serum or plasm a carbon dioxide, total 22 mmol/ L 20-29 Not Available [facility] ([facility]) [address] [place], [address], 01/25/2018 08:30:41 01/25/20 18 01/25/2018 CMP, serum or plasm a calcium 8.9 mg/dL 8.7-10 .2 Not Available [facility] ([facility]) [address] [place], [address], 01/25/2018 08:30:41 01/25/20 18 01/25/2018 CMP, serum or plasm a protein, total 5.8 g/dL 6.0-8. 5 below low normal Not Available [facility] ([facility]) [address] [facility] [place], [address], 01/25/2018 08:30:41 01/25/20 18 01/25/2018 CMP, serum or plasm a albumin 3.3 g/dL 3.5-5. 5 below low normal Not Available [facility] ([facility]) [address] [facility] [place], [address], 01/25/2018 08:30:41 01/25/20 18 01/25/2018 CMP, serum or plasm a globulin, total 2.5 g/dL 1.5-4. 5 Not Available [facility] ([facility]) [address] [facility] [place], [address], 01/25/2018 08:30:41 01/25/20 18 01/25/2018 CMP, serum or plasm a A/G ratio 1.3 1.2-2. 2 Not Available [facility] ([facility]) [address] [facility] [place], [address], 01/25/2018 08:30:41 01/25/20 18 01/25/2018 CMP, serum or plasm a bilirubin, total <0.2 mg/dL 0.0-1. 2 Not Available [facility] ([facility]) [address] [facility] [place], [address], 01/25/2018 08:30:41 01/25/20 18 01/25/2018 CMP, serum or plasm a alkaline phosphatase 136 IU/L 39-117 above high normal Not Available [facility] ([facility]) [address] [facility] [place], [address], 01/25/2018 08:30:41 01/25/20 18 01/25/2018 CMP, serum or plasm a AST (SGOT) 14 IU/L 0-40 Not Available [facility] ([facility]) [address] [facility] [place], [address], 01/25/2018 08:30:41 01/25/20 18 01/25/2018 CMP, serum or plasm a ALT (SGPT) 7 IU/L 0-32 Not Available [facility] ([facility]) [address] [place], [address], 01/25/2018 08:30:41 01/25/20 18 01/25/2018 uric acid, serum or plasm a uric acid 3.7 mg/dL 2.5-7. 1 Thera peuti c targe t for gout patie nts: <6.0 Not Available [facility] ([facility]) [address] [place], [address], 01/25/2018 08:30:42 02/22/20 18 02/24/2018 cultu re, wound aerobic culture FINAL REPORT abnormal Not Available [facility] ([facility]) [address] [place], [address], 02/26/2018 14:10:27 02/22/20 18 02/24/2018 cultu re, wound result 1 KLEBSI NILO OXYTOC A abnormal Heavy growt h Not Available [facility] ([facility]) [address] [place], [address], 02/26/2018 14:10:27 02/22/20 18 02/24/2018 cultu re, wound antimicrobia l susceptibili ty COMMEN T S = Susce ptibl e; I = Inter media te; R = Resis tant P = Posit keri; N = Negat keri MICS are expre ssed in micro grams per mL Antib iotic RSLT# 1 RSLT# 2 RSLT# 3 RSLT# 4 Amoxi cilli n/Cla vulan ic Acid S Ampic illin R Cefep ignacia S Ceftr iaxon e S Cefur oxime S Cipro floxa brian S Ertap enem S Genta micin S Imipe nem S Levof loxac in S Merop enem S Tetra cycli ne S Tobra mycin S Trime thopr im/Newton lfa S Not Available [facility] ([facility]) [address] [facility], [place], [address], 02/26/2018 14:10:27 02/22/20 18 02/26/2018 cultu re, wound anaerobic culture FINAL REPORT Not Available [facility] ([facility]) [address] [facility], [place], [address], 02/26/2018 14:10:27 02/22/20 18 02/26/2018 cultu re, wound result 1 COMMEN T No anaer obic growt h in 72 hours . Not Available [facility] ([facility]) [address] [facility], [place], [address], 02/26/2018 14:10:27 03/22/19 19 03/27/2018 bacte rial vagin osis + vagin itis panel , vagin al atopobium vaginae LOW - 0 score Not Available [facility] ([facility]) [address] [facility], [place], [address], 03/27/2018 20:08:01 03/22/19 19 03/27/2018 bacte rial vagin osis + vagin itis panel , vagin al bvab 2 LOW - 0 score Not Available [facility] ([facility]) [address] [place], [address], 03/27/2018 20:08:01 03/22/19 19 03/27/2018 bacte rial vagin osis + vagin itis panel , vagin al megasphaera 1 LOW - 0 score Calcu late total score by harvinder g the 3 indiv idual bacte rial vagin osis (BV) marke r score s toget her. Total score is inter prete d as follo ws: Total score 0-1: Indic ates the absen ce of BV. Total score 2: Indet ermin ate for BV. Addit ional clini iris data shoul d be evalu ated to estab bud a diagn osis. Total score 3-6: Indic ates the prese nce of BV. This test was devel oped and its perfo rmanc e ave cteri stics deter mined by [employer]. It has not been clear ed or appro keny by the Food and Drug Admin istra tion. The FDA has deter mined that such clear ance or appro emeterio is not neces madelyn. Not Available [facility] ([facility]) [address] [place], [address], 03/27/2018 20:08:01 03/22/1903/27/2018 bacte rial vagin osis + vagin itis panel , vagin al drew albicans, JOSE LUIS NEGATI VE negati ve Not Available [facility] ([facility]) [address] [place], [address], 03/27/2018 20:08:01 03/22/1903/27/2018 bacte rial vagin osis + vagin itis panel , vagin al drew glabrata, JOSE LUIS NEGATI VE negati ve This test was devel oped and its perfo rmanc e ave cteri stics deter mined by [employer]. It has not been clear ed or appro keny by the Food and Drug Admin istra tion. The FDA has deter mined that such clear ance or appro emeterio is not neces madelyn. Not Available [facility] ([facility]) [address] [place], [address], 03/27/2018 20:08:01 03/22/1903/27/2018 bacte rial vagin osis + vagin itis panel , vagin al trich vag by JOSE LUIS NEGATI VE negati ve Not Available [facility] ([facility]) [address] [place], [address], 03/27/2018 20:08:01 03/22/1903/27/2018 bacte rial vagin osis + vagin itis panel , vagin al chlamydia trachomatis, JOSE LUIS NEGATI VE negati ve Not Available [facility] ([facility]) [address] [facility], [place], [address], 03/27/2018 20:08:01 03/22/1903/27/2018 bacte rial vagin osis + vagin itis panel , vagin al neisseria gonorrhoeae, JOSE LUIS NEGATI VE negati ve Not Available [facility] ([facility]) [address] [facility], [place], [address], 03/27/2018 20:08:01 03/22/1903/27/2018 HSV (1+2) DNA, qual, PCR, unspe cifie d speci men hsv 1 JOSE LUIS NEGATI VE negati ve Not Available [facility] ([facility]) [address] [facility], [place], [address], 03/27/2018 20:08:02 03/22/19 19 03/27/2018 HSV (1+2) DNA, qual, PCR, unspe cifie d speci men hsv 2 JOSE LUIS NEGATI VE negati ve Not Available [facility] ([facility]) [address] [facility], [place], [address], 03/27/2018 20:08:02 03/22/19 19 03/25/2018 cultu re, vagin al/re ctal, strep tococ cus group B strep gp B JOSE LUIS NEGATI VE negati ve Cente rs for Disea se Contr ol and Preve ntion (CDC) and Ameri can Congr ess of Obste trici ans and Gynec ologi sts (ACOG ) guide lines for preve ntion of perin atal group B strep tococ iris (GBS) disea se speci fy co-co llect ion of a vagin al and recta l swab speci men to maxim ize sensi tivit y of GBS detec tion. Per the CDC and ACOG, swabb ing both the lower vagin a and rectu m subst antia lly incre ases the yield of detec tion jonathan red with sampl ing the vagin a alone . Penic illin G, ampic illin , or cefaz que are indic ated for intra partu m proph ylaxi s of perin atal GBS colon izati on. Refle x susce ptibi lity testi ng shoul d be perfo rmed prior to use of clind amyci n only on GBS isola jasper from penic illin -priya rgic women who are consi dered a high risk for anaph ylaxi s. Treat ment with vanco mycin witho ut addit ional testi ng is warra nted if resis tance to clind amyci n is noted . Not Available [facility] ([facility]) [address] [place], [address], 03/27/2018 20:08:02 01/28/20 20 01/29/2020 hepat itis panel (A+B+ C), acute , serum hep A Ab, IgM Negati ve negati ve Not Available [facility] ([facility]) [address] [place], [address], 01/30/2020 03:07:46 01/28/20 20 01/29/2020 hepat itis panel (A+B+ C), acute , serum HBsAg screen Negati ve negati ve Not Available [facility] ([facility]) [address] [place], [address], 01/30/2020 03:07:46 01/28/20 20 01/29/2020 hepat itis panel (A+B+ C), acute , serum hep B core Ab, IgM Negati ve negati ve Not Available [facility] ([facility]) [address] [place], [address], 01/30/2020 03:07:46 01/28/20 20 01/29/2020 hepat itis panel (A+B+ C), acute , serum hep C virus Ab <0.1 s/co_ ratio 0.0-0. 9 Negat keri: < 0.8 Indet ermin ate: 0.8 - 0.9 Posit keri: > 0.9 The CDC recom mends that a posit keri HCV antib janny resul t be follo wed up with a HCV Nucle ic Acid Ampli ficat ion test (5507 13). Not Available [facility] ([facility]) [address] [facility], [place], [address], 01/30/2020 03:07:46 01/28/20 20 01/29/2020 hepat itis B surfa ce Ab, quali tativ e, serum hep B surface Ab, qual Non Reacti ve Non React keri: Incon siste nt with immun ity, less than 10 mIU/m L React keri: Consi stent with immun ity, great er than 9.9 mIU/m L Not Available [facility] ([facility]) [address] [facility], [place], [address], 01/30/2020 03:07:47 01/28/2001/29/2020 RPR (rapi d plasm a reagi n), serum RPR Non Reacti ve non reacti ve Not Available [facility] ([facility]) [address] [facility], [place], [address], 01/30/2020 03:07:48 01/28/2001/29/2020 HIV 1+2 AB + HIV 1 p24 Ag, quali tativ e immun oassa y, serum HIV screen 4TH generation wrfx Non Reacti ve non reacti ve Not Available [facility] ([facility]) [address] [place], [address], 01/30/2020 03:07:48 01/28/2001/29/2020 HSV 2 IgG Ab, QN, IA, serum hsv 2 IgG, type spec <0.91 index 0.00-0 .90 Negat keri <0.91 Equiv ocal 0.91 - 1.09 Posit keri >1.09 Note: Negat keri indic ates no antib odies detec khoi to HSV-2 . Equiv ocal may sugge st early infec tion. If clini daamris appro priat e, retes t at later date. Posit keri indic ates antib odies detec khoi to HSV-2 . Not Available [facility] ([facility]) [address] [facility], [place], [address], 01/30/2020 03:07:49 01/28/20 20 01/29/2020 cultu re, urine urine culture, routine Final report Not Available [facility] ([facility]) [address] [facility], [place], [address], 01/30/2020 03:07:49 01/28/20 20 01/29/2020 cultu re, urine result 1 No growth Not Available [facility] ([facility]) [address] [facility], [place], [address], 01/30/2020 03:07:49 01/28/20 20 02/01/2020 bacte rial vagin osis panel , vagin al atopobium vaginae Low - 0 score Not Available [facility] ([facility]) [address] [facility], [place], [address], 02/01/2020 16:09:12 01/28/20 20 02/01/2020 bacte rial vagin osis panel , vagin al bvab 2 Modera te - 1 score Not Available [facility] ([facility]) [address] [place] [address], [address], 02/01/2020 16:09:12 01/28/2002/01/2020 bacte rial vagin osis panel , vagin al megasphaera 1 Low - 0 score Calcu late total score by harvinder g the 3 indiv idual bacte rial vagin osis (BV) marke r score s toget her. Total score is inter prete d as follo ws: Total score 0-1: Indic ates the absen ce of BV. Total score 2: Indet ermin ate for BV. Addit ional clini iris data shoul d be evalu ated to estab bud a diagn osis. Total score 3-6: Indic ates the prese nce of BV. This test was devel oped and its perfo rmanc e ave cteri stics deter mined by [facility]. It has not been clear ed or appro keny by the Food and Drug Admin istra tion. The FDA has deter mined that such clear ance or appro emeterio is not suzette joshi. Not Available [facility] ([facility]) [address] [place], [address], 02/01/2020 16:09:12 01/28/20 20 02/01/2020 bacte rial vagin osis panel , vagin al drew albicans, JOSE LUIS Negati ve negati ve Not Available [facility] ([facility]) [address] [place], [address], 02/01/2020 16:09:12 01/28/2002/01/2020 bacte rial vagin osis panel , vagin al drew glabrata, JOSE LUIS Negati ve negati ve Not Available [facility] ([facility]) [address] [place], [address], 02/01/2020 16:09:12 01/28/20 20 02/01/2020 bacte rial vagin osis panel , vagin al trich vag by JOSE LUIS Negati ve negati ve Not Available [facility] ([facility]) [address] [place], [address], 02/01/2020 16:09:12 01/28/20 20 02/01/2020 bacte rial vagin osis panel , vagin al chlamydia trachomatis, JOSE LUIS Negati ve negati ve Not Available [facility] ([facility]) [address] [place], [address], 02/01/2020 16:09:12 01/28/2002/01/2020 bacte rial vagin osis panel , vagin al neisseria gonorrhoeae, JOSE LUIS Negati ve negati ve Not Available [facility] ([facility]) [address] [place], [address], 02/01/2020 16:09:12 01/28/20 20 02/01/2020 bacte rial vagin osis panel , vagin al hsv 1 JOSE LUIS Negati ve negati ve Not Available [facility] ([facility]) [address] [place], [address], 02/01/2020 16:09:12 01/28/20 20 02/01/2020 bacte rial vagin osis panel , vagin al hsv 2 JOSE LUIS Negati ve negati ve Not Available [facility] ([facility]) [address] [facility], [place], [address], 02/01/2020 16:09:12 01/28/20 20 01/30/2020 cultu re, vagin al/re ctal, strep tococ cus group B strep gp B JOSE LUIS Negati ve negati ve Cente rs for Disea se Contr ol and Preve ntion (CDC) and Ameri can Congr ess of Obste trici ans and Gynec ologi sts (ACOG ) guide lines for preve ntion of perin atal group B strep tococ iris (GBS) disea se speci fy co-co llect ion of a vagin al and recta l swab speci men to maxim ize sensi tivit y of GBS detec tion. Per the CDC and ACOG, swabb ing both the lower vagin a and rectu m subst antia lly incre ases the yield of detec tion jonathan red with sampl ing the vagin a alone . Penic illin G, ampic illin , or cefaz que are indic ated for intra partu m proph ylaxi s of perin atal GBS colon izati on. Refle x susce ptibi lity testi ng shoul d be perfo rmed prior to use of clind amyci n only on GBS isola jasper from penic illin -priya rgic women who are consi dered a high risk for anaph ylaxi s. Treat ment with vanco mycin witho ut addit ional testi ng is warra nted if resis tance to clind amyci n is noted . Not Available [facility] ([facility]) [address] [facility], [place], [address], 02/01/2020 16:09:15 01/25/20 18 01/24/2018 US, obste tric, bioph ysica l profi le + non-s tress test No observ ation record ed. [facility] (Imaging) [address] [place], [address], 01/24/2018 15:04:10 01/25/20 18 01/24/2018 non-s tress test No observ ation record ed. [facility] [address] [place], [address], 01/25/2018 17:48:35 02/01/20 18 01/31/2018 US, obste tric, bioph ysica l profi le + non-s tress test No observ ation record ed. [facility] (Imaging) [address] [place], [address], 02/04/2018 21:06:27 02/01/20 18 01/31/2018 US, obste tric, bioph ysica l profi le + non-s tress test No observ ation record ed. [facility] ([facility]) [address] [place], [address], 01/31/2018 12:32:35 02/08/20 18 01/31/2018 US, obste tric, bioph ysica l profi le + non-s tress test No observ ation record ed. [facility] ([facility]) [address] [place], [address], 02/08/2018 09:36:23 Result Notes None recorded. Problems Name Problem SNOMED Code Status Onset Date Resolution Date Notes Provider Name and Address Organization Details Recorded Time Group B Streptoc occus carrier 99450116998 03 Completed 2016 Radha Lehman MA [facility], [place] - [facility] 9 16:20:54 HELLP syndrome 67087354 Completed 201607/27/2016 Previous pregnanc y with PIH Radha Lehman [place] null, [place] - [facility] 9 16:20:54 Pregnanc y 88126550 Completed 201601/18/2017 Kang Dykes null, [place] - [facility] 8 16:23:58 Group B Streptoc occus carrier [id number] 03 Completed 2016 Kang Dykes [place], [place] - [facility] 8 16:34:21 Group B Streptoc occus carrier 05808418292 03 Active 2016 Radha Lehman [place], [place] - [facility] 9 16:20:54 Urinary tract infectio n in pregnanc y 201364888 Completed 2016 Radha Lehman [place] [facility] 9 16:20:54 Urinary tract infectio n in pregnanc y 752816358 Active 2016 Radha Lehman [place] - [facility] 9 16:20:54 Hypereme sis gravidar um 08978341 Completed 2016 Radha Lehman [place] [facility] 9 16:20:53 Hypereme sis gravidar um 25896250 Completed 2016 Kang Dykes [place] - [facility] 8 16:34:21 Hypereme sis gravidar um 39256143 Active 2016 Radha Lehman [place] [facility] 9 16:20:53 Candidia sis of vagina 26446765 Completed 201610/04/2018 Jannie Ceballos [place], [place] - [facility] 9 13:30:31 Abnormal progeste belinda 822094196 Active 2017 Radha Lehman [place] - [facility] 9 16:20:54 Abnormal progeste belinda 307952297 Completed 2017 Radha Lehman [place] [facility] 9 16:20:54 Pregnanc y 65240135 Completed 201707/31/2017 Kang Dykes [place] - [facility] 8 16:23:58 Chlamydi al infectio n 051257853 Completed 2017 Radha Lehman [place] [facility] 9 16:20:54 Chlamydi al infectio n 058397077 Active 2017 Radha Lehman [place] [facility] 9 16:20:54 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 86005576938 9102 Completed 2017 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 Radha MIGUEL Lehman [place] - [facility] 9 16:20:54 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 24998083142 9102 Active 2017 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 Radha Lehman [place] [facility] 9 16:20:54 Past pregnanc y history of prematur e delivery 624731946 Completed 2017 Radha Le[place] [facility] 9 16:20:53 Past pregnanc y history of prematur e delivery 211405293 Active 2017 Radha Lehman [place] [facility] 9 16:20:54 Pregnanc y-induce d hyperten nubia 08127478 Completed 2017 Radha Lehman [place] [facility] 9 16:20:53 Pregnanc y-induce d hyperten nubia 60236710 Active 2017 Radha Lehman [place] [facility] 9 16:20:53 Rubella non-immu ne 451212306 Active 2017 Kian Paredes [place] [facility] 8 13:16:58 Female steriliz ation Active 2018 Kang Dykes [place], [place] - [facility] 9 09:43:19 Problem Notes None recorded. Procedures Surgical History Date Name Laterality Status Provider Name and Address Organization Details Recorded Time 02/09/20 18 section completed Kang Dykes [facility] 03/24/2018 09:44:47 02/09/20 18 ligation of bilateral fallopian tubes completed Kang Dykes [facility] 03/24/2018 09:45:07 12/29/19 17 Other completed Kang Dykes [facility] 07/31/2017 15:50:16 Other completed Kadi Lacy MA [facility] 06/22/2016 13:01:00 Other completed Kadi Lacy MA [facility] 06/22/2016 13:01:34 Tonsillectomy completed Kadi Lacy MA [facility] 06/22/2016 13:01:38 Imaging Results None recorded. Procedure Notes None recorded. Medical Equipment None Reported. Allergies Allergen ID Allergen Name Allergen Category Reaction Reaction Severity Criticality Documentation Date Start Date Code Code System Note Provider Name and Address Organization Details Recorded Time 74615 Substance with sulfonami de structure and antibacte rial mechanism of action (substanc e) medicatio n respirato ry distress severe Not available 06/22/2016 75638 8003 SNOMED Kadi Lacy MA null, [place] - [facility] 7 12:47:42 Medications Name Sig Start Date Stop Date Status Note LastModified by Organization Details LastModified Time Prescriptio n - Prior Authorizati on Request CHEW AND SWALLOW ONE TABLET BY MOUTH ONE TIME DAILY 03/15 completed Not Available Not Available Not Available multivitami n tablet Take 1 tablet every day by oral route. 2019 active Not Available Not Available Not Avai lable Augmentin 875 mg-125 mg tablet Take 1 tablet every 12 hours by oral route for 14 days. 2017 active Not Available Not Available Not Avai lable clindamycin HCl 300 mg capsule TK 1 C PO Q 6 H FOR 10 DAYS active Not Available Not Available No t Available cetirizine 10 mg tablet active Not Available Not Available Not Available fluconazole 150 mg tablet Take 1 tablet by oral route. 2020 active Not Available Not Available Not Avai lable ranitidine 300 mg tablet 1 po at bedtime 2017 active Not Available Not Available Not Avai lable hydrocodone 5 mg-acetamin ophen 325 mg tablet 07/31 completed Not Available Not Available Not Available Keflex 500 mg capsule Take 1 capsule every 6 hours by oral route for 7 days. 02/28 completed Not Available Not Available Not Available ondansetron HCl 4 mg tablet TAKE 1 TABLET BY MOUTH EVERY 8 HOURS NEEDED 01/18 completed Not Available Not Available Not Available terconazole 0.8 % vaginal cream Insert 1 applicato rful every day by vaginal route for 3 days. 01/18 completed Not Available Not Available Not Available Zithromax Z-Cricket 250 mg tablet TAKE 2 TABLETS (500 MG) BY ORAL ROUTE ONCE DAILY FOR 1 DAY THEN 1 TABLET (250 MG) BY ORAL ROUTE ONCE DAILY FOR 4 DAYS 01/18 completed Not Available Not Available Not Available nifedipine ER 30 mg tablet,exte nded release 01/18 completed Not Available Not Available Not Available acetaminoph en 300 mg-codeine 30 mg tablet 07/31 completed Not Available Not Available Not Available ciprofloxac in 500 mg tablet Take 1 tablet every 12 hours by oral route for 10 days. active Not Available Not Available No t Available Condoms-Pre m Lubricated Take 1 device by miscell. route. 01/17 completed Not Available Not Available Not Available amoxicillin 500 mg tablet 11/01 completed Not Available Not Available Not Available Vitamin tablet Take 1 tablet every day by oral route as directed for 90 days. 2017 active Not Available Not Available Not Avai lable betamethaso ne acetate and sodium phos 6 mg/mL suspension for injection Take 1 mL by injection route. 01/18 completed Not Available Not Available Not Available famotidine 20 mg tablet Take 1 tablet twice a day by oral route. 02/07 completed Not Available Not Available Not Available cyanocobala min (vit B-12) 1,000 mcg/mL injection solution Inject 1 mL every month by intramusc ular route. 02/21 completed Not Available Not Available Not Available nystatin 100,000 unit/gram topical cream APPLY TO THE AFFECTED AREA(S) BY TOPICAL ROUTE 2 TIMES PER DAY 01/18 completed Not Available Not Available Not Available ranitidine 150 mg tablet Take 1 tablet twice a day by oral route at bedtime. 02/21 completed Not Available Not Available Not Available progesteron e micronized 200 mg capsule Take 1 capsule twice a day by oral route. 02/07 completed Not Available Not Available Not Available aspirin 81 mg chewable tablet Chew 2 tablets every day by oral route. 02/21 completed Not Available Not Available Not Available folic acid 1 mg tablet Take 4 tablets every day by oral route. active Not Available Not Available No t Available ibuprofen 600 mg tablet 01/18 completed Not Available Not Available Not Available levofloxaci n 500 mg tablet 06/22 completed Not Available Not Available Not Available ondansetron 4 mg disintegrat ing tablet Take 1 tablet every 8 hours by oral route as needed. 02/21 completed Not Available Not Available Not Available fluticasone propionate 50 mcg/actuati on nasal spray,suspe nsion active Not Available Not Available Not Available metoclopram darius 10 mg tablet Take 1 tablet 4 times a day by oral route for 30 days. 02/07 completed Not Available Not Available Not Available progesteron e micronized 100 mg capsule Take 1 capsule twice a day by oral route. 01/18 completed Not Available Not Available Not Available Benadryl Allergy 25 mg tablet Take 1 tablet every day by oral route at bedtime. 01/18 completed Not Available Not Available Not Available azithromyci n 500 mg tablet Take 1 tablet every day by oral route for 6 days. 10/03 completed Not Available Not Available Not Available Sprintec (28) 0.25 mg-0.035 mg tablet 03/15 completed Not Available Not Available Not Available nitrofurant oin monohydrate /macrocryst als 100 mg capsule 12/06 completed Not Available Not Available Not Available Calcium 600 with Vitamin D3 600 mg-10 mcg (400 unit) chewable tablet Take 1 tablet twice a day by oral route. 03/15 completed Not Available Not Available Not Available Calcium with Vitamin D3 600 mg (carbonate) -10 mcg (400 unit) capsule Take 1 capsule twice a day by oral route. 2018 active Not Available Not Available Not Avai lable Calcium with Vitamin D 600 mg-10 mcg (400 unit) tablet Take 1 tablet twice a day by oral route. 2019 active Not Available Not Available Not Avai lable magnesium sulfate 40 gram/1,000 mL (40 mg/mL) in 0.9 % sod.chlorid e IV Inject 2 g every hour by intraveno us route. 01/18 completed Not Available Not Available Not Available metoclopram darius 10 mg disintegrat ing tablet DISSOLVE ONE TABLET IN MOUTH FOUR TIMES DAILY ONE HOUR BEFORE EACH MEAL AND AT BEDTIME 07/20 completed Not Available Not Available Not Available Lo Loestrin Fe 1 mg-10 mcg (24)/10 mcg (2) tablet Take 1 tablet every day by oral route. 07/31 completed Not Available Not Available Not Available calcium 600 mg (as carbonate)- vitamin D3 20 mcg (800 unit) tablet Take 1 tablet twice a day by oral route for 30 days. 07/31 completed Not Available Not Available Not Available Gummy 400 mcg-35 mg-25 mg-5 mg chewable tablet Take 1 tablet by oral route. 03/15 completed Not Available Not Available Not Available Alive Women's Gummy Vitamin (with choline) 200 mcg-37.5 mg chew tablet CHEW AND SWALLOW ONE TABLET BY MOUTH ONE TIME DAILY 03/15 completed Not Available Not Available Not Available Norlyda 0.35 mg tablet Take 1 tablet every day by oral route. 07/31 completed Not Available Not Available Not Available Vitals Date Recorded Body height Body mass index (BMI) [Percentile] Per age and sex Body mass index (BMI) Body weight Provider Name and Address Organization Details Last Updated DateTime 02/28/2018 157.48 cm 93 % 30.7 kg/m2 16389.51 816 g Radha Lehman MA [facility] 02/28/2018 16:20:54 Date Recorded Body height Body mass index (BMI) Body mass index (BMI) [Percentile] Per age and sex Body weight Systolic And Diastolic Provider Name and Address Organization Details Last Updated DateTime 03/22/2018 157.48 cm 30 kg/m2 92 % 08480.5 8 g 112/52 mm[Hg] Valeria Rocha [place] - [facility] 9 13:19:53 Date Recorded Body height Provider Name an d Address Organization Details Last Updated DateTime 01/27/2020 157.48 cm Kang [facility] 01/28/2020 10:08:56 Date Recorded Body weight Provider Name an d Address Organization Details Last Updated DateTime 02/21/2018 97740.03052 g Mackenzie bess MD Attn: Accounting,[address] [facility], [place], [address], [place] - [facility] 02/21/2018 15:08:36 Date Recorded Body height Body mass index (BMI) Body mass index (BMI) [Percentile] Per age and sex Body temperature Systolic And Diastolic Provider Name and Address Organization Details Last Updated DateTime 8 157.48 cm 31.5 kg/m2 94 % 97.7 [degF] 134/86 mm[Hg] Kian Paredes MA [facility] 8 12:25:35 Social History Question Answer Notes LastModified by Organizat ion Details LastModified Time Tobacco Smoking Status Never Smoker Kadi Lacy MA null, [facility] 06/22/2016 12:57:37 Do You Have An Advance Directive? No Information not available 06/22/2016 If You Are , What Was Your Level Of Alcohol Consumption Prior To ? None Information not available 06/22/2016 Is Anesthesia Consult Planned? No Information not available 06/22/2016 Plan No Information no t available 06/22/2016 Is Blood Transfusion Acceptable In An Emergency? Yes Information not available 06/22/2016 What Is Your Level Of Caffeine Consumption? Occasional Information not available 06/22/2016 Live With Cats/exposure To Cat Litter No Information not available 06/22/2016 How Much Tobacco Do You Chew? None Information not available 06/22/2016 What Type Of Diet Are You Following? REGULAR Information not available 06/22/2016 Which Illicit Or Recreational Drugs Have You Used? Denies [email or web address] Information not available 08/18/2016 Education 12 Information no t available 06/22/2016 Have There Been Any Changes To Your Family Or Social Situation? No Information no t available 06/22/2016 Frequent Air Travel No Information not available 06/22/2016 Illicit Drugs Pre- Denies None [email or web address] Information not available 08/18/2016 Live Alone Or With Others? With Others Information not available 06/22/2016 Marital Status Single Informatio n not available 06/22/2016 What Was The Date Of Your Most Recent Tobacco Screening? 01/27/2020 Information not available 01/27/2020 How Many Children Do You Have? 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 Yes Information not available 06/22/2016 Do You Have Smoke And Carbon Monoxide Detectors In Your Home? Yes Information not available 06/22/2016 Are You Passively Exposed To Smoke? No Information no t available 06/22/2016 How Much Tobacco Do You Smoke? No Information not available 08/18/2016 Smoking Pre- No Information not available 06/22/2016 General Stress Level Medium Information not available 06/22/2016 Do You Use Sunscreen Routinely? No Information not available 06/22/2016 Supplements Pnv Information n ot available 08/18/2016 On What Date Was Tobacco Cessation Counseling Provided? 01/27/2020 Information not available 01/27/2020 How Many Years Have You Smoked Tobacco? 0 [email or web address] Information not available 08/18/2016 Sex: Unknown Functional Status Question Answer Note LastModified by Organizat ion Details LastModified Time What is your level of alcohol consumption? None Information not available 07/31/2017 Do you or have you ever used smokeless tobacco? Never used smokeless tobacco Information not available 03/18/2019 Are you currently employed? Yes Information not available 06/22/2016 What is your occupation? [place] [employer] Information not available 06/22/2016 Do you or have you ever used e-cigarettes or vape? Never used electronic cigarettes Information not available 03/18/2019 What is your exercise level? Moderate Information not available 06/22/2016 Mental Status None recorded. Family History Relationship Description Onset Age of this Age Resolved Age Notes LastModified by Organization Details LastModified Time Paternal Grandmother Cerebrovascu lar accident Not available 12:53:47 Paternal Aunt Diabetes mellitus Not available 2016 12:54:02 Father Hypertensive disorder Not available 2016 12:54:14 Mother Hypertensive disorder Not available 2016 12:55:30 Mother Disorder of thyroid gland Not available 2016 12:57:07 Medical History Condition Response Other N High Blood Pressure N Breast Cancer N Kidney or Bladder Problems N Thyroid Problems N GI Problems N Lung Disease N Depression N Blood Clots N Acne N Breast Problem N Eating Disorder N Anemia N Anesthesia Complications N Headaches/Migraines Y Anxiety Disorder Y Ovarian Cancer N Diabetes N Muscle, Joint, or Bone Problems N Blood Transfusions N Seizures/Epilepsy N Polyps N Infertility N Acid Reflux (GERD) Y Cancer N Abuse/Domestic Violence N Asthma N Endometriosis N High Cholesterol N Hepatitis N Liver Disease N Heart Disease N Pre-Eclampsia N Osteoporosis N Gynecological History Statement/Question Response Flow Moderate On BCP's at Conception? N STIs/STDs N HPV Vaccine Y Duration of Flow (days) 5 Age at Menarche 12 Current Control Method Tubal Ligat ion Frequency of Cycle (Q days) Sexually Active? Y Menses Monthly N Date of Last Pap Smear Sexual Problems? N LMP Approximate Desired Control Method Sterilizati on Obstetrics History GPAL:G 2 P 0 2 0 2 Type Value Multiple Births 0 Full Term 0 Induced 0 Spontaneous 0 Premature 2 Living 2 Ectopics 0 Total 2 Immunizations Vaccine Type Date Status Note Provider Nam e and Address Organization Details Recorded Time Tdap 10/13/2016 completed Not Available [facility] 03/16/2019 02:43:05 Tdap 12/06/2017 completed Not Available [facility] 03/16/2019 02:36:26 Influenza, split virus, quadrivalent, PF 12/06/2017 completed Not Available [facility] 0 02:39:48 Past Encounters Encounter ID Performer Location Encounter Start Date Encounter Closed Date Diagnosis/Indication Diagnosis SNOMED-CT Code Diagnosis ICD10 Code Diagnosis Note [id number] MD Pantera Ramírez (DATA REDUCTION TECHNICIAN) [address] [place] [address] [phone] 06/22/2016 10:54:21 06/22/2016 14:12:40 Routine care 661053049 Z34.00 Morning sickness 5985506 6 O21.9 Candidiasis of vagina 72 378006 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 889266560 Z22.423 [id number] [facility] [address] [place] [address] 24744-124 0 07/08/2016 09:39:15 07/08/2016 10:49:38 Normal 97452321 Z34.91 [id number] [facility] [address] [place] [address] 04517-021 0 07/20/2016 09:52:01 07/20/2016 15:10:22 Routine care 348223653 Z34.[address] reptococcus carrier 8081155911 103 Z22.481 [id number] Kang Dykes MD [facility] (DATA REDUCTION TECHNICIAN) [address] [place] [address] [id number] 0 08/18/2016 09:55:33 08/18/2016 11:50:40 Routine care 613586633 Z34.[address] reptococcus carrier [id number] 103 Z22.742 [id number] Kang Dykes MD [facility] (DATA REDUCTION TECHNICIAN) [address] [place] [address] 75502-393 0 09/14/2016 09:53:45 09/14/2016 14:56:41 Routine care 010632637 Z34.00 Recommende d patient take benadryl at night for nightmares /sleep-wal mahnaz; will check progestero ne at next visit Group B St reptococcus carrier 8647170650 103 Z22.330 Hyperemesi s gravidarum 42650867 O21.0 Recommende d patient take metoclopra mide just before lying down for bed Anxiety 22435000 F41.9 Referral to counseling , Pantera BH [id number] [facility]CTION [facility]CHNIC[facility] [address] [place] [address] [id number] 0 10/13/2016 10:03:34 10/13/2016 11:28:12 Routine care 323619955 Z34.00 Recommende d patient take benadryl at night for nightmares /sleep-wal mahnaz; will check progestero ne at next visit screening 2437 80584 Z36 [id number] Kang Dykes MD [facility] (DATA REDUCTION TECHNICIAN) [address] [place] [address] [id number] 0 11/09/2016 09:51:09 11/09/2016 10:44:27 Routine care 907612414 Z34.00 Recommende d patient take benadryl at night for nightmares /sleep-wal mahnaz; will check progestero ne at next visit [id number] [facility]CTION [facility]CHNIC[facility] [address] [place] [address] [id number] 0 11/23/2016 09:53:29 11/23/2016 10:53:46 Routine care 207429576 Z34.00 Recommende d patient take benadryl at night for nightmares /sleep-wal mahnaz; will check progestero ne at next visit Candidiasis of vagina 72 869028 B37.3 Exposure t o sexually transmissible disorder 174794435 Z20.2 [id number] [facility]CTION TECHNIC[facility] [address] [place] [address] 91820-594 0 12/07/2016 09:34:58 12/08/2016 14:41:57 Routine care 380815554 Z34.03 - induced hypertension 68152067 O13.9 SEVERE WITH IUGR [id number] Kang Dykes MD [facility] (DATA REDUCTION TECHNICIAN) [address] [place] [address] [id number] 0 01/18/2017 10:04:48 01/18/2017 14:49:35 care 999206830 Z39.2 vaginal delivery female, breast feeding Exposure t o sexually transmissible disorder 041772975 Z20.[address] reptococcus carrier 8258251457 103 Z22.330 Family turner nning surveillance 946513538 Z30.09 - induced hypertension 28847559 O13.9 SEVERE WITH IUGR, DELIVERED [id number] Kang Dykes MD [facility] (DATA REDUCTION TECHNICIAN) [address] [place] [address] 31016-749 0 03/15/2017 15:39:23 03/15/2017 17:36:20 Family planning surveillance 195065034 Z30.09 [id number] Kang Dykes MD [facility] (DATA REDUCTION TECHNICIAN) [address] [place] [address] [id number] 0 07/25/2017 11:08:43 07/25/2017 23:32:23 [id number] Kang Dykes MD [facility] (DATA REDUCTION TECHNICIAN) [address] [place] [address] 57205-477 0 07/31/2017 14:23:52 08/01/2017 11:24:42 Routine care 214134104 Z34.03 SEVERE PIH WITH IUGR BP165/112 TRANSFER TO [facility] in last Abnormal progesterone [address] reptococcus carrier 7615735034 103 Z22.330 Hyperemesi s gravidarum 33112890 O21.0 Recommende d patient take metoclopra mide just before lying down for bed Past pregn king history of premature delivery 326141134 Z87.51 Past pregn king history of severe pre-eclampsia 663439435 Z87.59 [id number] [facility]CTION TECHNICIAN) [address] [place] [address] [id number] 0 08/31/2017 09:58:49 09/04/2017 14:23:12 Seen by nurse 145992818 Z76.89 [id number] [facility]UCTION TECHNICIAN) [address] [place] [address] [id number] 0 10/03/2017 14:41:51 10/03/2017 15:34:15 Routine care 458650341 Z34.03 SEVERE PIH WITH IUGR BP165/112 TRANSFER TO [facility] in last Chlamydial infection 105 859766 A74.9 Heterozygo us methylenetetrahydrofo late reductase mutation 9747635995 33211 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 Abnormal progesterone [address] reptococcus carrier 8343772848 103 Z22.330 Past pregn king history of premature delivery 250985596 Z87.51 - induced hypertension 12161272 O13.9 SEVERE WITH IUGR, DELIVERED last preg grow th restriction 61133974 O35.8XX0 severe prior preg [id number] MD Pantera Ramírez (DATA REDUCTION TECHNICIAN) [address] [place] [address] 29244-753 0 11/01/2017 10:24:46 11/01/2017 12:04:45 Routine care 179702342 Z34.03 SEVERE PIH WITH IUGR BP165/112 TRANSFER TO [facility] in last Heterozygo us methylenetetrahydrofo late reductase mutation 8329074655 68839 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 Received B12 on 11/01/17 Past pregn king history of premature delivery 962787615 Z87.51 Abnormal progesterone 13 1511721 R94.7 Hyperemesi s gravidarum 92669507 O21.0 Recommende d patient take metoclopra mide just before lying down for bed Group B St reptococcus carrier 7729552398 103 Z22.330 Chlamydial infection [address] on 10/03/17 - induced hypertension 50908471 O13.9 SEVERE PIH with HELLP WITH IUGR, DELIVERED last preg at 34 wks vaginally Rubella non-immune 59655 4009 Z01.84 Will receive vax after [id number] MD Pantera Ramírez (DATA REDUCTION TECHNICIAN) [address] [place] [address] 58388-726 0 12/06/2017 09:54:39 12/06/2017 10:57:26 Routine care 441621723 Z34.03 Had severe PIH in previous , with delivery, will monitor. 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 Received B12 on 11/01/17 Past pregn king history of premature delivery 165467044 Z87.51 Rubella non-immune 56427 4009 Z01.84 Will receive vax after Group B St reptococcus carrier 9503522745 103 Z22.330 Candidiasis of vagina 72 853084 B37.3 Administra tion of influenza vaccine 24359412 Z23 [id number] MD Pantera Ramírez (DATA REDUCTION TECHNICIAN) [address] [place] [address] 0 12/20/2017 10:06:23 12/20/2017 11:36:17 Routine care 232444296 Z34.03 Had severe PIH in previous , with delivery, will monitor. 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 Received B12 on 12/06/17. Continued B12 injections . Due for injection at next visit. Rubella non-immune 71156 4009 Z01.84 Will receive vax after Past pregn king history of premature delivery 753540255 Z87.51 SEVERE PIH with HELLP WITH IUGR, DELIVERED last preg at 34 wks vaginally On examina tion - varicose veins 990416091 I83.91 Maternity hose prescribed . Located to right upper thigh near femoral area. - induced hypertension 79221037 O13.9 SEVERE PIH with HELLP WITH IUGR, DELIVERED last preg at 34 wks vaginally Indigestion 694252626 K3 0 [id number] Kang Dykes MD [facility] (DATA REDUCTION TECHNICIAN) [address] [place] [address] 64179-210 0 01/03/2018 10:16:33 01/03/2018 13:10:45 Routine care 645156794 Z34.03 Had severe PIH in previous , with delivery, will monitor. 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 Received B12 on 01/03/18. Continued B12 injections . 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 Received B12 on 01/03/18. Continued B12 injections . Past pregn king history of premature delivery 563702219 Z87.51 SEVERE PIH with HELLP WITH IUGR, DELIVERED last preg at [address] reptococcus carrier 0153572931 103 Z22.330 Routine an tenatal care 586099782 Z34.83 Had severe PIH in previous , with delivery, will monitor. [id number] MD Pantera Ramírez (DATA REDUCTION TECHNICIAN) [address] [place] [address] 83097-106 0 01/24/2018 14:21:33 01/24/2018 16:28:30 Routine care 391307979 Z34.83 Had severe PIH in previous , with delivery, will monitor. 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 Received B12 on 01/03/18. Continued B12 injections . Past pregn king history of premature delivery 085381825 Z87.51 SEVERE PIH with HELLP WITH IUGR, DELIVERED last preg at 34 wks vaginally Rubella non-immune 34707 4009 Z01.84 Will receive vax after Group B St reptococcus carrier 2370512522 103 Z22.936 [id number] MD Pantera Nielsen (DATA REDUCTION TECHNICIAN) [address] [place] [address] 51543-089 0 02/21/2018 12:06:34 02/21/2018 16:27:12 Postoperative wound infection 14827313 T81.40XA Counseled about it. Did q tip test. The incision intact. Advised patient to go to ER if bleeding more than a pad per hour, fever > 100.4, and severe pain. 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 Received B12 on 01/03/18. Continued B12 injections . Deliveries by 874209904 O82 On 02/08/18 boy Female sterilization 608 25991 Z30.2 02/08/18 [id number] MD Pantera Ramírez (DATA REDUCTION TECHNICIAN) [address] [place] [address] 54364-561 0 01/27/2020 10:26:14 01/28/2020 10:13:33 Exposure to sexually transmissible disorder 488691811 Z20.2 Family turner nning surveillance 719857777 Z30.09 [id number] MD Pantera Ramírez (DATA REDUCTION TECHNICIAN) [address] [place] [address] 83961-215 0 01/28/2020 10:07:19 01/28/2020 17:14:16 Family planning surveillance 267132468 Z30.09 Exposure t o sexually transmissible disorder 889738196 Z20.2 Health Concerns Section Related Observation LastModified by Organization Detai ls LastModified Time None Recorded Concern Status LastModified by Organization Details LastModified Time None Recorded Advance Directives Directive N: Payers Insurance Date Sequence Insurance Name Policy Number Policy Mckinley Covered Member ID Mckinley Member ID Guarantor Name 01/22/2020 2 *SELF PAY* Al jonathan Velasquez 01/16/2022 1 [facility] - DOS PRIOR TO 2020 (MEDICAID REPLACEMENT - HMO) Zora Velasquez [id number] Edilma Velasquez 01/22/2020 1 [place] [employer] Zora Velasquez [id number] Edilma Velasquez 07/16/2018 1 [facility] [id number] Edilma Velasquez [id number] Edilma Velasquez Notes Date Note Type Note Provider Name and Address Organization Details Recorded Time 8 text/html Patient here for incision check. Patient had on 02/08/18. Patient say initially on 02/11/18 it started like rash around incision which cleared up. Patient say she started leaking brown color fluid since 02/18/18. pt states she went to the ER 02/19/18 for a wound check and was told she had a blood boil pt states wound was leaking more in the beginning. She was prescribed antibiotics in ER. pt states would is still leaking fluid but not as bad. Patient denies fever, chills. Mackenzie Barnhart MD Attn: Accounting,[address] [place], [address], [facility] 02/21/2018 15:10:41 9 text/html 22 yo cf s/p c section, here for wound evaluation; culture + for klebsiella, now asx after seroma complelety resolved without abx [facility] 02/28/2018 18:49:08 9 text/html VisitReported bypatient.Associated Symptoms:no abnormal bleeding; no pelvic pain; laceration well healed; no constipation; no fecal incontinence; no dysuria; no urinary incontinence; no fever; no problems; no mastitis 22 yo cf s/p c section and tubal, here forpp evaluation; culture + for klebsiella, now asx after seroma complelety resolved without abx [facility] 03/24/2018 09:47:08 0 text/html Sexually Transmitted InfectionReported bypatient.Context:chla mydia; GBS, uti Associated Symptoms:no abdominal pain; no anal warts; no back pain; no chills; no constipation; no diarrhea; no dribbling; no dysuria; no emptying; no fever; no frequency; no groin pain; no hematuria; no nausea; no nocturia; no odor; no painful intercourse; no penile blisters; no penile rash; no penile warts; no perineum warts; no pruritus; no straining stream; no stress incontinence; no temperature; no urethral discharge; no urethral itch; no urgency; no urge incontinence; no vomiting; no weight loss 24 yo cf s/p c section and tubal, here forpp evaluation; culture + for klebsiella,DESIRES STD TESTIING Kang sawn, [facility] 01/28/2020 10:13:31 0 text/html Sexually Transmitted InfectionReported bypatient.Context:chla mydia; GBS, uti Associated Symptoms:no abdominal pain; no anal warts; no back pain; no chills; no constipation; no diarrhea; no dribbling; no dysuria; no emptying; no fever; no frequency; no groin pain; no hematuria; no nausea; no nocturia; no odor; no painful intercourse; no penile blisters; no penile rash; no penile warts; no perineum warts; no pruritus; no straining stream; no stress incontinence; no temperature; no urethral discharge; no urethral itch; no urgency; no urge incontinence; no vomiting; no weight loss 24 yo cf s/p c section and tubal, here forpp evaluation; culture + for klebsiella,DESIRES STD TESTIING Kang swan, [facility] 01/28/2020 10:13:13 OBGyn Episode Ob Episode Information Episode Created Date Number of Fetuses Patient Bloodtype Patient rh Status Prepregnancy Weight lbs Domestic Partner Domestic Partner Phone Father Name Commercial Loan Processor Status 06/23/19 17 1 A Positive 144 Nick Englelavon undecided CLOSED Fetus Data First Name Last Name Admitted to NICU Weight (g) Sex Living Outcome Pediatric Complications Fetus ID Race Codes Race Delivery Type Sandy Kelsey as true 1813.36 8 F true Prematur e Baby had decrease lung function was given surfactant [id number] Spani Ameri can Nadja n Vaginal Problems Problem Notes 10/13/16 having a baby girl, going [facility] to [facility], Dr. Winston Cannon MD. Melina QUINTERO, [facility] 11/09/2016 miguel pruitt Problem Name Start Date End Date Resolution Snomed Code Not e Group B Streptococcus carrier 06/22/2016 [id number] Hyperemesis gravidarum 09/14/2016 [id number] 01 Aaron Calculation Initial Aaron Date Initial Exam Date Initial Exam Provider Initial Ultrasound Date Last Menstrual Period Date Ultra Sound Weeks Gestation 01/20/2017 06/22/2016 anuj 07/05/2016 04/07/2016 11 Eighteen To Twenty Week Aaron Update Ultra Sound Date Fundal Height At Umbil Quickening Date Ultra Sound Latest Weeks Gestation Final Aaron Confirmed By Final Aaron Confirmed Date Final Aaron Date Ultra Sound Latest Days Gestation 07/06/19 17 11 07/15/2016 01/21/20 17 4 Pre- Flowsheet Flowsheet Date 06/22/2016 Jacobs Score Blood Edema Fundus Height Fundus Units Glucose Ketones Leukocytes Nitrite Labor Signs Protein Cervic Dilation Cervic Effacement Cervic Station neg none 7 none negative neg Type Weight in lbs Pre/Post Dialysis Refused 149.890571913623 BP Diastolic BP Location Tested BP Systolic BP Type sitting Fetus Heart Rate Present Fetus Movement Comments nob Flowsheet Date 07/08/2016 Jacobs Score Blood Edema Fundus Height Fundus Units Glucose Ketones Leukocytes Nitrite Labor Signs Protein Cervic Dilation Cervic Effacement Cervic Station Type Weight in lbs Pre/Post Dialysis Refused BP Diastolic BP Location Tested BP Systolic BP Type Fetus Heart Rate Present Fetus Movement Comments Flowsheet Date 07/20/2016 Jacobs Score Blood Edema Fundus Height Fundus Units Glucose Ketones Leukocytes Nitrite Labor Signs Protein Cervic Dilation Cervic Effacement Cervic Station neg none 13 wks none negative none neg Type Weight in lbs Pre/Post Dialysis Refused 147.721031116931 BP Diastolic BP Location Tested BP Systolic BP Type 60 100 sitting Fetus Heart Rate Present A 161 Present Fetus Movement A No Comments repeat us, afp next , Flowsheet Date 08/18/2016 Jacobs Score Blood Edema Fundus Height Fundus Units Glucose Ketones Leukocytes Nitrite Labor Signs Protein Cervic Dilation Cervic Effacement Cervic Station neg none 17 wks none negative none neg Type Weight in lbs Pre/Post Dialysis Refused 149.025842010710 BP Diastolic BP Location Tested BP Systolic BP Type 60 100 Fetus Heart Rate Present A 148 Present Fetus Movement A Yes Comments ITS A GIRL!! AFP/US Flowsheet Date 09/14/2016 Jacobs Score Blood Edema Fundus Height Fundus Units Glucose Ketones Leukocytes Nitrite Labor Signs Protein Cervic Dilation Cervic Effacement Cervic Station neg none 22 cm none negative none trace Type Weight in lbs Pre/Post Dialysis Refused 152.858382035604 BP Diastolic BP Location Tested BP Systolic BP Type 70 112 sitting Fetus Heart Rate Present A 152 Present Fetus Movement A Yes Comments Prescribed benadryl to help with nightmares/sleep-walking, recommended metoclopramide to be taken before bed; BHAVANA in 4 weeks Flowsheet Date 10/13/2016 Jacobs Score Blood Edema Fundus Height Fundus Units Glucose Ketones Leukocytes Nitrite Labor Signs Protein Cervic Dilation Cervic Effacement Cervic Station neg none 25 cm none negative none neg Type Weight in lbs Pre/Post Dialysis Refused 157.843962279313 BP Diastolic BP Location Tested BP Systolic BP Type 60 100 sitting Fetus Heart Rate Present A 134 Present Fetus Movement A Yes Comments Flowsheet Date 11/09/2016 Jacobs Score Blood Edema Fundus Height Fundus Units Glucose Ketones Leukocytes Nitrite Labor Signs Protein Cervic Dilation Cervic Effacement Cervic Station neg none 30 cm none negative none neg Type Weight in lbs Pre/Post Dialysis Refused 164.67021567129 BP Diastolic BP Location Tested BP Systolic BP Type 60 108 sitting Fetus Heart Rate Present A 152 Present Fetus Movement A Yes Comments us done mon, repeat 1 mo Flowsheet Date 11/23/2016 Jacobs Score Blood Edema Fundus Height Fundus Units Glucose Ketones Leukocytes Nitrite Labor Signs Protein Cervic Dilation Cervic Effacement Cervic Station neg none 31 cm none negative none 1+ Type Weight in lbs Pre/Post Dialysis Refused 167.592048145582 BP Diastolic BP Location Tested BP Systolic BP Type 84 120 sitting Fetus Heart Rate Present A 145 Present Fetus Movement A Yes Comments Flowsheet Date 12/07/2016 Jacobs Score Blood Edema Fundus Height Fundus Units Glucose Ketones Leukocytes Nitrite Labor Signs Protein Cervic Dilation Cervic Effacement Cervic Station 2+ 29 cm Other (see comments ) Type Weight in lbs Pre/Post Dialysis Refused 171.048599325489 BP Diastolic BP Location Tested BP Systolic BP Type 112 158 sitting Fetus Heart Rate Present A 135 Present Fetus Movement A Yes Comments SEVERE PIH WITH IUGR BP165/1 12 TRANSFER TO [facility] ON MAGNESIUM FROM [facility] Flowsheet Date 01/18/2017 Jacobs Score Blood Edema Fundus Height Fundus Units Glucose Ketones Leukocytes Nitrite Labor Signs Protein Cervic Dilation Cervic Effacement Cervic Station Type Weight in lbs Pre/Post Dialysis Refused 153.527882086213 BP Diastolic BP Location Tested BP Systolic BP Type sitting Fetus Heart Rate Present Fetus Movement Comments Flowsheet Date 03/15/2017 Jacobs Score Blood Edema Fundus Height Fundus Units Glucose Ketones Leukocytes Nitrite Labor Signs Protein Cervic Dilation Cervic Effacement Cervic Station Type Weight in lbs Pre/Post Dialysis Refused 160.954681145406 BP Diastolic BP Location Tested BP Systolic BP Type 74 L arm 114 sitting Fetus Heart Rate Present Fetus Movement Comments Menstrual History Last Menstrual Date Menses Monthly On Bcp Conception Prior Menses Frequency Hcg Plus Date Menarche Onset Age 0204/07/2016 true Genetic Screening And Infection History Question Response Note Patient's Age Will Be 35 Yea rs Or Older At Estimated Date of Delivery false Thalassemia (Turkmen, Jamaican, Mediterranean, Or Background): MCV < 80 false Neural Tube Defect (Meningomyelocele, Spina Bifi da, Or Anencephaly) false Congenital Heart Defect false Down Syndrome false Jaspreet-Sachs (eg, Anglican, Cajun, Korean-Libyan) f alse Migue Disease false Sickle Cell Disease Or Trait () false Hemophilia Or Other Blood Disorders false Muscular Dystrophy false Cystic Fibrosis false Mccone's Chorea false Mental Retardation/Autism false If Yes, Was Person Tested For Fragile X? false Other Inherited Genetic Or Chromosomal Disorder false Maternal Metabolic Disorder (eg, Type 1 Diabetes , PKU) false Patient Or Baby's Father Had A Child With Defects Not Listed Above false Recurrent Loss, Or A Stillbirth false Medications (including Suppl ements, Vitamins, Herbs, OTC Drugs), Illicit/Recreational Drugs, Alcohol true see list If Yes, Agent(s) And Strength/Dosage false Any Other Genetic History false Live With Someone With TB Or Exposed To TB false Patient Or Partner Has History Of Genital Herpes false Rash Or Viral Illness Since Last Menstrual Perio d false History Of STD, Gonorrhea, Chlamydia, HPV, Syphi lis false Other Infection History true GBS+ Plans and Education First Trimester Discussed Date Discussion Item Discussion Note Discuss ed By 07/08/2016 Anticipated course o f care [email or web address] 07/08/2016 Alcohol [email or web address] 07/08/2016 Intimate partner violence [email or web address] 07/08/2016 Environmental/work hazards r [email or web address] 07/08/2016 Screening for aneuploidy [email or web address] 07/08/2016 Nutrition counseling ; special diet; dietary precautions (mercury, listeriosis) [email or web address] 07/08/2016 Childbirth classes/[facility]spital facilities [email or web address]2016 HIV and other routin e tests at initial ob visit [email or web address] 07/08/2016 Risk factors identif ied by history [place] [id number] 07/08/2016 Weight gain counseling [facility] 07/08/2016 Exercise [place] [id number] 07/08/2016 Teratogens [place] [id number] 07/08/2016 Use of any medicatio ns (including supplements, vitamins, herbs, or OTC drugs) [place] [address] 07/08/2016 10/13/16 breast feed, cb-rma [place] [address] 07/08/2016 Sexual activity [place] [address] 07/08/2016 Tobacco/smoking cess ation counseling (ask, advise, assess, assist, and arrange) [place] [address] 07/08/2016 Illicit/recreational drugs [place] [address] 07/08/2016 Dental care given dental con sent at initial ob visit [place] [address] 07/08/2016 Travel [place] [address] 07/08/2016 Seat belt use [place] [address] 07/08/2016 Indications for ultrasonography [place] [address] 07/08/2016 Avoidance of saunas or hot tubs [place] [address] 07/08/2016 Toxoplasmosis precau tions (cats/raw meat) [place] [address] Second Trimester Discussed Date Discussion Item Discussion Note Discuss ed By 10/13/2016 Selecting a care provider [facility] [email or web address] 10/13/2016 family planning/tubal sterilization 10/13/16 ppbcp, cb-rma [email or web address] Third Trimester Discussed Date Discussion Item Discussion Note Discuss ed By 10/13/2016 Anesthesia plans 10/13/16 NCB, p t states no epidural, cb-rma [email or web address] Delivery Information Delivery Date Delivery Type Labor Anesthesia Weeks Gestation Incision Type Labor Labor Length Hrs Delivered By Post Complications Tubal Sterilization Discharge Date Comments 7 Induce d Regional-Ep idural 34.1 true 2 Hypertension false 12/14/[address] Montero Discharge Information Feeding Method Contraceptive Method Maternal HG B and HCT Levels Combination norethindrone 0.35mg Ob Episode Information Episode Created Date Number of Fetuses Patient Bloodtype Patient rh Status Prepregnancy Weight lbs Domestic Partner Domestic Partner Phone Father Name Commercial Loan Processor Status 08/01/19 18 1 A Positive 156 nick lawrence CLOSED Fetus Data First Name Last Name Admitted to NICU Weight (g) Sex Living Outcome Pediatric Complications Fetus ID Race Codes Race Delivery Type Abilio Kelsey as false 2693.20 25 M true Prematur e Howard Pedriatric, Dr. Montero [id number] Problems Problem Notes 11/01/17 baby boy, yes to ci rc, breast feed, NCB, yes to epidural if needed, Peds, Dr. Howard MD, Dr. Montero, [facility] undecided, cb-rma Problem Name Start Date End Date Resolution Snomed Code Note Past history of premature delivery 10/04/19 18 [id number] Group B Streptococcus carrier 06/23/19 17 [id number] HELLP syndrome 06/23/19 17 017 [id number] Previous with PIH Chlamydial infection 08/07/19 18 [id number] Hyperemesis gravidarum 09/15/19 17 [id number] -induced hypertension 10/04/19 18 [id number] Heterozygous methylenetetrahydrofolate reductase mutation 08/07/19 18 [id number] heterozygous for the MTHFR C677T variant Abnormal progesterone 07/13/19 18 [id number] Urinary tract infection in 07/28/19 17 [id number] Aaron Calculation Initial Aaron Date Initial Exam Date Initial Exam Provider Initial Ultrasound Date Last Menstrual Period Date Ultra Sound Weeks Gestation 03/07/2018 07/31/2017 anuj 07/19/2017 05/01/2017 7 Eighteen To Twenty Week Aaron Update Ultra Sound Date Fundal Height At Umbil Quickening Date Ultra Sound Latest Weeks Gestation Final Aaron Confirmed By Final Aaron Confirmed Date Final Aaron Date Ultra Sound Latest Days Gestation 07/20/19 18 7 [facility] 07/31/2017 019 0 Pre-reinier Flowsheet Flowsheet Date 07/31/2017 Jacobs Score Blood Edema Fundus Height Fundus Units Glucose Ketones Leukocytes Nitrite Labor Signs Protein Cervic Dilation Cervic Effacement Cervic Station trace none 8 wks none trace none trace Type Weight in lbs Pre/Post Dialysis Refused 168.582274415058 BP Diastolic BP Location Tested BP Systolic BP Type 78 104 sitting Fetus Heart Rate Present Fetus Movement A No Comments NOB, at 8wk6d, hx of severe pre-eclampsia, c/o associated breast tenderness and nausea. Cultures, UA and routine screens obtained. 1st trimester US ordered. Flowsheet Date 08/31/2017 Jacobs Score Blood Edema Fundus Height Fundus Units Glucose Ketones Leukocytes Nitrite Labor Signs Protein Cervic Dilation Cervic Effacement Cervic Station Type Weight in lbs Pre/Post Dialysis Refused BP Diastolic BP Location Tested BP Systolic BP Type Fetus Heart Rate Present Fetus Movement Comments Flowsheet Date 10/03/2017 Jacobs Score Blood Edema Fundus Height Fundus Units Glucose Ketones Leukocytes Nitrite Labor Signs Protein Cervic Dilation Cervic Effacement Cervic Station neg none 17 wks none negative none neg Type Weight in lbs Pre/Post Dialysis Refused 168.478637224884 BP Diastolic BP Location Tested BP Systolic BP Type 74 108 sitting Fetus Heart Rate Present A 135 Present Fetus Movement A Yes Comments Flowsheet Date 11/01/2017 Jacobs Score Blood Edema Fundus Height Fundus Units Glucose Ketones Leukocytes Nitrite Labor Signs Protein Cervic Dilation Cervic Effacement Cervic Station neg none 21 cm none negative none trace Type Weight in lbs Pre/Post Dialysis Refused 174.83907513312 BP Diastolic BP Location Tested BP Systolic BP Type 76 108 sitting Fetus Heart Rate Present A 141 Present Fetus Movement A Yes Comments US ordered and GTT/TDAP next visit Progesterone level checked. B12 shot given Doing well with no specific complaints. Flowsheet Date 12/06/2017 Jacobs Score Blood Edema Fundus Height Fundus Units Glucose Ketones Leukocytes Nitrite Labor Signs Protein Cervic Dilation Cervic Effacement Cervic Station Type Weight in lbs Pre/Post Dialysis Refused 177.295545206182 BP Diastolic BP Location Tested BP Systolic BP Type 64 122 Fetus Heart Rate Present Fetus Movement Comments Flowsheet Date 12/20/2017 Jacobs Score Blood Edema Fundus Height Fundus Units Glucose Ketones Leukocytes Nitrite Labor Signs Protein Cervic Dilation Cervic Effacement Cervic Station neg trace 31 cm none negative Other (see comments ) trace Type Weight in lbs Pre/Post Dialysis Refused 179.541068542473 BP Diastolic BP Location Tested BP Systolic BP Type 70 108 sitting Fetus Heart Rate Present A 137 Present Fetus Movement A Yes Comments Varicose vein noted to right upper thigh near femoral region. 12/02/17 us noted vertex position. Given 24 hr urine collection device, will start 24 hrs prior to next visit. Flowsheet Date 01/03/2018 Jacobs Score Blood Edema Fundus Height Fundus Units Glucose Ketones Leukocytes Nitrite Labor Signs Protein Cervic Dilation Cervic Effacement Cervic Station neg none 31 wks none negative none neg Type Weight in lbs Pre/Post Dialysis Refused 180.971614178883 BP Diastolic BP Location Tested BP Systolic BP Type 72 116 sitting Fetus Heart Rate Present A 133 Present Fetus Movement A Yes Comments b12 given start bpp weekly c ultures next visit Flowsheet Date 01/17/2018 Jacobs Score Blood Edema Fundus Height Fundus Units Glucose Ketones Leukocytes Nitrite Labor Signs Protein Cervic Dilation Cervic Effacement Cervic Station neg none 33 wks none negative none neg Type Weight in lbs Pre/Post Dialysis Refused 184.589590976192 BP Diastolic BP Location Tested BP Systolic BP Type 65 110 sitting Fetus Heart Rate Present A 144 Present Fetus Movement A Yes Comments weekly nst/bpp/office visits Flowsheet Date 01/24/2018 Jacobs Score Blood Edema Fundus Height Fundus Units Glucose Ketones Leukocytes Nitrite Labor Signs Protein Cervic Dilation Cervic Effacement Cervic Station neg none 34 wks none negative none neg Type Weight in lbs Pre/Post Dialysis Refused 185.283364873956 BP Diastolic BP Location Tested BP Systolic BP Type 65 110 sitting Fetus Heart Rate Present A 144 Present Fetus Movement A Yes Comments pih blood wrk Flowsheet Date 02/21/2018 Jacobs Score Blood Edema Fundus Height Fundus Units Glucose Ketones Leukocytes Nitrite Labor Signs Protein Cervic Dilation Cervic Effacement Cervic Station Type Weight in lbs Pre/Post Dialysis Refused Weight 172.338101436673 BP Diastolic BP Location Tested BP Systolic BP Type 86 134 sitting Fetus Heart Rate Present Fetus Movement Comments s/p on 02/08/18. L eaking from incision. Flowsheet Date 02/28/2018 Jacobs Score Blood Edema Fundus Height Fundus Units Glucose Ketones Leukocytes Nitrite Labor Signs Protein Cervic Dilation Cervic Effacement Cervic Station Type Weight in lbs Pre/Post Dialysis Refused Weight 168.302192387709 BP Diastolic BP Location Tested BP Systolic BP Type Fetus Heart Rate Present Fetus Movement Comments Menstrual History Last Menstrual Date Menses Monthly On Bcp Conception Prior Menses Frequency Hcg Plus Date Menarche Onset Age 0305/01/2017 Genetic Screening And Infection History Question Response Note Patient's Age Will Be 35 Years Or Older At Estim ated Date of Delivery false Thalassemia (Turkmen, Jamaican, Mediterranean, Or Background): MCV < 80 false Neural Tube Defect (Meningomyelocele, Spina Bifi da, Or Anencephaly) false Congenital Heart Defect false Down Syndrome false Jaspreet-Sachs (eg, Anglican, Cajun, Korean-Libyan) f alse Migue Disease false Sickle Cell Disease Or Trait () false Hemophilia Or Other Blood Disorders false Muscular Dystrophy false Cystic Fibrosis false Mccone's Chorea false Mental Retardation/Autism false If Yes, Was Person Tested For Fragile X? false Other Inherited Genetic Or Chromosomal Disorder false Maternal Metabolic Disorder (eg, Type 1 Diabetes , PKU) false Patient Or Baby's Father Had A Child With Defects Not Listed Above false Recurrent Loss, Or A Stillbirth false Medications (including Suppl ements, Vitamins, Herbs, OTC Drugs), Illicit/Recreational Drugs, Alcohol true If Yes, Agent(s) And Strength/Dosage false Any Other Genetic History false Live With Someone With TB Or Exposed To TB false Patient Or Partner Has History Of Genital Herpes false Rash Or Viral Illness Since Last Menstrual Perio d false History Of STD, Gonorrhea, Chlamydia, HPV, Syphi lis true chlam Other Infection History false History of HIV false History of Hepatitis true Prior GBS-infected child false Plans and Education First Trimester Discussed Date Discussion Item Discussion Note Discuss ed By 08/31/2017 Anticipated course o f care [email or web address] 08/31/2017 Alcohol [place]08/31/2017 Intimate partner violence rh un[place]08/31/2017 Environmental/work hazards r [email or web address] 08/31/2017 Screening for aneuploidy rhu nley08/31/2017 Nutrition counseling ; special diet; dietary precautions (mercury, listeriosis) unley08/31/2017 Childbirth classes/h ospital facilities [email or web address] 08/31/2017 HIV and other routin e tests unley08/31/2017 Risk factors identif ied by history unley08/31/2017 Weight gain counseling rhunl ey1 08/31/2017 Exercise [email or web address] 08/31/2017 Teratogens [email or web address] 08/31/2017 Use of any medicatio ns (including supplements, vitamins, herbs, or OTC drugs) [email or web address] 08/31/2017 11/01/17 [facility] 08/31/2017 [facility] 08/[facility]/2017 Tobacco/smoking cess ation counseling (ask, advise, assess, assist, and arrange) [place] [address] 08/31/2017 Illicit/recreational drugs r [place]1 08/31/2017 [facility] 08/31/2017 Travel [place] [address] 08/31/2017 [facility]at [facility] 08/31/2017 Indications for ultrasonography [place] [address] 08/31/2017 Avoidance of saunas or hot tubs [place] [address] 08/31/2017 Toxoplasmosis precau tions (cats/raw meat) [place] [address] Second Trimester Discussed Date Discussion Item Discussion Note Discuss ed By 11/01/2017 Selecting a care provider 11/01/17 Dr. Lawrence, Dr. Montero, cb-rma [email or web address] 11/01/2017 family planning/tubal sterilization 11/01/17 PPBC undecided, cb-rma [email or web address] Third Trimester Discussed Date Discussion Item Discussion Note Discuss ed By 11/01/2017 Anesthesia plans 11/01/17 NCB, E pidural only needed, cb-rma [email or web address] 11/01/2017 Circumcision 11/01/17 baby boy, yes to ci rc, cb-rma [email or web address] 11/01/2017 11/01/17 Breast Feed, cb-rm a cbradshaw Delivery Information Delivery Date Delivery Type Labor Anesthesia Weeks Gestation Incision Type Labor Labor Length Hrs Delivered By Post Complications Tubal Sterilization Discharge Date Comments 8 Induce d Regional-Sp inal 36.1 jania None true 02/10/2018 Discharge Information Feeding Method Contraceptive Method Maternal HG B and HCT Levels Breast TUBAL
--- OUTSIDE RECORDS SUMMARY | 2024-09-12 07:00 | XMS_ITS | Clinical Summary ---
Author Organization [facility] Address [address] [place] [address] Care Team Providers Care Paint Stripper Name Role Phone Unavailable Primary Care Provider Unavailabl e Source Comments [facility],non-owned Affiliates and Associated Physician Practices is amultiple site organization consisting of ambulatory clinics and hospital sitesin [place], [place], [place] and [place]. This disclosure is being madepursuant to the Care Everywhere program and may not contain all information available regarding this patient. Last updated 17.[facility] Allergies Active Allergy Reactions Criticality Noted Date Comments Sulfa Drugs 12/07/2016 Medications * Be aware that medications may not be up to date on this document. Alwaysverify current medications with the patient. Vit-Fe Fumarate-FA ( VITAMIN) 28-0.8 MG tabletIndicatio ns: Take 1 tablet by mouth once daily Reasons: Active calcium citrate-vitamin D (CITRACAL PLUS D) 315-200 MG-UNIT tabletIndicatio ns:Hypocalcemia ,chewable Take 1 tablet by mouth once daily Reasons: Low Amount of Calcium in the Blood, chewable Active aspirin (ASPIRIN) 81 MG chew tablet Take 81 mg by mouth once daily Active Active Problems Problem Noted Date Diagnosed Date Elevated blood pressure reading 12/07/2016 HELLP syndrome (HELLP), third trimester Preeclampsia, severe, third trimester Comments Yes Immunizations Immunization Administration Dates Next Due INFLUENZA VACCINE, QUADR. [...] at Not on file Legal Sex Female 5:38 AM [employer] Gender Identity Not on file Sexual Orientation [...] 3:11 PM CDT Height 157.5 cm (5' 2) 11/27/2017 3:11 PM CDT Body Mass Index 30.73 11/27/2017 3:11 PM CDT Plan of Treatment Health Maintenance Due Date Last Done Comments HIV SCREENING 2012 HEPATITIS C SCREENING 07/14/2015 HEPATITIS B VACCINE (1 of 3 - 19+ 3-dose series) 2016 COVID-19 VACCINE ( - 2023-2 5 season) 2023 DEPRESSION SCREENING 02/28/2024 HPV VACCINE (1 - 3-dose SCDM series) 2024 INFLUENZA VACCINE (#1) 2024 12/14/2016 DTAP/TDAP/TD VACCINES (2 - T d or Tdap) 12/14/2026 12/14/2016 ZOSTER VACCINE (1 of 2) 07/19/2047 Respiratory Syncytial Virus (RSV) Vaccine Pt: or over 60 yrs (1 - 1-dose 75+ series) 2072 HIB VACCINE Aged Out No longer eligi ble based on patient's age to complete this topic MENINGOCOCCAL (Group B) VACC INE SHARED DECISION-MAKING Aged Out No longer eligibl e based on patient's age to complete this topic MENINGOCOCCAL GROUPS A/C/Y/W VACCINE Aged Out No longer eligible b ased on patient's age to complete this topic PNEUMOCOCCAL VACCINE Aged Out No long er eligible based on patient's age to complete this topic [place] [facility] [place]: [facility] [address] [place] [address] MEDICAID [place] Advance Directives * Full Code (Latest Code Status on File) Date Activated Date Inactivated Comments 12/08/2016 12:51 PM 12/14/2016 2:17 PM * Full Code Date Activated Date Inactivated Comments 12/07/2016 1:17 PM 12/08/2016 12:51 PM
--- OUTSIDE RECORDS SUMMARY | 2024-09-12 07:00 | XMS_ITS | Clinical Summary ---
Author Organization [facility] Address [facility] [place] [address] Care Team Providers Care Coal Shoveler Name Role Phone Non-Staff, Provider Primary Care [...] 1:48 PM CDT Height 157.5 cm (5' 2) 09/29/2023 1:48 PM CDT Body Mass Index 30.18 09/29/2023 1:48 PM CDT Plan of Treatment Health Maintenance Due Date Last Done Comments Cervical Cancer Screening Pa p Smear (Age 21 to 29) Every 3 Years 1997 Cervical Cancer Screening 1997 Annual Physical 2000 Hepatitis C 07/19/2015 Hepatitis B Vaccines (1 of 3 - 19+ 3-dose series) 2016 Pneumococcal Vaccine: Pediatrics (0 to 5 Years) and At-Risk Patients (6 to 49 Years) (1 of 2 - PCV) 2016 COVID-19 Vaccine ( - 2023-2 5 season) 2023 09/03/2020, 08/12/2020 DTaP, Tdap and Td Vaccines ( 4 - Td or Tdap) 12/07/2027 12/06/2017, 12/14/2016, 10/13/2016 HPV Vaccines Aged Out No longer eligi ble based on patient's age to complete this topic Meningococcal B Vaccine Aged Out No l onger eligible based on patient's age to complete this topic Meningococcal Vaccine Aged Out No opal yenny eligible based on patient's age to complete this topic RSV Immunizations Under 20 Months Aged Out No longer eligible b ased on patient's age to complete this topic Insurance [place] Care Teams Coal Shoveler Relationship Specialty Start Date End Date Non-Staff, Provider PCP - General UNKNOWN PHYSICIAN SPECIALTY 09/29/23
[2024-09-12 07:33] LABS: Hematocrit 40.6 % (37.0-47.0); Hemoglobin 13.5 g/dL (12.0-15.0)
== END 2024-09-12 06:58 | disposition home or self-care (01) ==
LOC: ANHLAB 06:58
PROVIDERS: PCP Emergency Medicine; Visit Provider Obstetrics & Gynecology
DX: R58 Hemorrhage, not elsewhere classified (principal)
CPT/HCPCS: 36415; 85014; 85018

== ENCOUNTER 2024-09-13 00:31 | Day surgery (SDC) | payer OTHER, SELFPAY ==
--- NOTE | 2024-09-10 07:40 | PM.IMHP ---
H&P: [facility] History of Present Illness Date/Time: 09/10/24 07:40 Chief Complaint: Excessive heavy refractory to medical therapy Narrative: This is a 29-year-old 2 para 2 status post tubal ligation admitted for hysteroscopy/dilatation curettage/ablation secondary to excessive heavy bleeding. Medical therapy has been unsuccessful. Risks and benefits reviewed including but not exclusive of aspiration pneumonia, bleeding, transfusion, perforation injury to bowel, bladder, ureters, or other internal organs with need for open laparotomy. She received the ACO[employer] handouts entitled hysteroscopy as well as dilatation curettage in the [place] handout. She had all questions answered. She asked to proceed Review of Systems Review of Systems: All systems as dictated in [facility] Past Medical History Medical History Unspecified perforation of tympanic membrane, right ear Tympanic membrane perforation, nontraumatic Sinusitis Post-operative pain COVID-19 Knee injury Surgical History Surgical History Previous section (~2018) H/O tubal ligation (~2018) Family History Family History Mother Hypertension Cerebrovascular accident Father Hypertension Grandparent Cancer Grandparent Hypertension Social History Social History Social History: Caffeine-daily Years smoked: 1 Smoking status: Former smoker Tobacco type: cigarettes Alcohol intake: current Alcohol use details: rarely Substance use: current Substance use type: marijuana Lack of Transportation: No Lack of Food: Never True Current Housing: I Have Housing Concerned About Future Housing: No Difficulty Paying Gas/Electric Bills: No Difficulty Paying for Meds: No Currently Unemployed: No Education: High School Diploma/GED Difficulty w/ Childcare or Family Care: No Living arrangements: with family Spiritual care concerns: No Meds Home Medications and Allergies Home Medications ?Medication ?Instructions ?Recorded ?Confirmed ?Type cetirizine 10 mg tablet (Zyrtec) 10 mg PO DAILY 07/29/21 08/28/24 History multivitamin 1 tablet PO DAILY 07/29/21 08/28/24 History diclofenac sodium 75 mg 75 mg PO BID #30 tabs 05/30/23 08/28/24 Rx tablet,delayed release Bacillus coagulans 250 million 1 tablet PO DAILY 05/01/24 08/28/24 History cell chewable tablet (Digestive Advantage Immune) alprazolam 0.25 mg tablet 0.25 mg PO BID PRN anxiety #60 tabs 05/01/24 08/28/24 Rx biotin 10,000 mcg chewable tablet 10,000 mcg PO DAILY 05/01/24 08/28/24 History (Hair, Skin and Nails (biotin)) spironolactone 50 mg tablet 50 mg PO BID #180 tabs 05/01/24 08/28/24 Rx medroxyprogesterone 5 mg tablet 5 mg PO DAILY 08/28/24 08/28/24 History (Provera) Allergies Allergy/AdvReac Type Severity Reaction Status Date / Time Sulfa (Sulfonamide Allergy Severe Anaphylactic Verified 08/28/24 09:45 Antibiotics) Shock Exam Narrative: GENERAL: Well-appearing, well-nourished, and in no acute distress. HEAD: Normocephalic, atraumatic. EYES: PERRLA and EOMI. ENT: Nares clear, no rhinorrhea or epistaxis. Mucous membranes moist. Oropharynx without tonsillar hypertrophy exudate or other lesions. NECK: Supple. No adenopathy or masses. CHEST: No respiratory distress. Clear to auscultation. No wheezes rales or rhonchi HEART: Regular rate and rhythm. No murmur heard. Normal peripheral pulses. ABDOMEN: Soft, nontender, nondistended, normal active bowel sounds. MSK: Left knee joint effusion present. No warmth or erythema. Somewhat decreased range of motion due to pain. Able to ambulate. Mild tenderness throughout the knee joint. No deformity. Compartments soft. Neurovascularly intact distally. Right knee and right lower extremity benign SKIN: Warm, dry, no rash. NEURO: Alert and oriented x3. No focal deficits. PSYCH: Normal mood and affect. Assessment and Plan Assessment and plan (1) Excessive bleeding: Code(s): R58 - Hemorrhage, not elsewhere classified Status: Acute Plan Proceed with hysteroscopy/dilatation curettage/ablation
[2024-09-10 16:24] VITALS: BMI 29.2
--- NOTE | 2024-09-10 16:33 | SUR.PREOP ---
Report to the Outpatient Waiting Room, entrance under the green pavilion located off [facility], at time 1:30p.m. on date 09/13/2024. Planned Procedure Time: 3:30p.m..? Time changes happen often and if your time is changed the preop area will call you the afternoon before. - You and your visitor will be asked to self-screen and do not enter if you have any COVID symptoms. Please call surgeon if you need to reschedule. - A mask is optional within the hospital at this time. Patients may have clear liquids (water, carbonated beverages, clear teas, apple juice) until 3 hours prior to surgery with a maximum of 20 ounces. - No food from midnight until time of surgery and no smoking, or chewing tobacco (or any form of nicotine). No chewing gum, candy or mints. - Infants may have breast milk until 4 hours before surgery, infant formula 6 hours prior to surgery. - Children will be allowed to drink immediately following surgery.? If applicable, please bring a bottle or sippy cup to assist with drinking. Juice, water, soda, and popsicles are readily available.? For infants on formula, please bring formula the day of surgery.? Pacifiers are allowed. Take only the following medications with a SIP of water on the morning of surgery: ALPRAZOLAM DO NOT STOP ANY OF YOUR OTHER PRESCRIPTION MEDICATIONS PRIOR TO SURGERY EXCEPT THE FOLLOWING Hold all vitamins and supplements for 3 days per anesthesiologist. Medications to discontinue per physician VITAMINS AND SUPPLEMENTS Date to take last dose 09/10/2024 Please no make-up, nail yakut, hairspray, perfume, deodorant, or body powder the day of surgery.? No jewelry (including any body piercings) or valuables the day of surgery, leave them at home.? Please take a shower or bath the night before, or the morning of, surgery with an antibacterial soap.? Wear comfortable, loose fitting clothing.? Children are encouraged to wear pajamas. - Jewelry must be removed prior to entering the operating room.? Rings and piercings that are not removed may be cut off. - The hospital will not accept responsibility for valuables.? - Please leave all valuables, including medications, at home the day of surgery. If you are going home after surgery, a licensed rental car ferry driver must drive you home.? - NO public transportation without another adult if you receive anesthesia. - We recommend that an adult stay with you for 24 hours following discharge. - We also recommend that you do not drive, make important decision, drink alcoholic beverages, or take any drugs that were not prescribed by your health care provider for at least 24 hours after your discharge time. For Pediatric surgeries, we recommend two adults accompany the child home. Follow any additional instructions given to you from your surgeon. Telephone instructions given to Charles Velasquez and asked if any additional questions and then verbalized understanding. Patient advised to call surgeon office or pre surgery nurse liaison [phone] if any additional questions.
--- OUTSIDE RECORDS SUMMARY | 2024-09-13 00:33 | XMS_ITS | Clinical Summary ---
Author Organization [facility] Address [facility] [place] [address] Care Team Providers Care Squeak Rattle And Leak Repairer Name Role Phone Non-Staff, Provider Primary Care [...] patient's age to complete this topic Insurance [place] Care Teams Squeak Rattle And Leak Repairer Relationship Specialty Start Date End Date Non-Staff, Provider PCP - General UNKNOWN PHYSICIAN SPECIALTY 09/29/23
--- OUTSIDE RECORDS SUMMARY | 2024-09-13 00:33 | XMS_ITS | Clinical Summary ---
Author Organization [facility] Address [address] [place] [address] Care Team Providers Care Mold Forms Builder Name Role Phone Unavailable Primary Care Provider Unavailabl e Source Comments [facility],non-owned Affiliates and Associated Physician Practices is amultiple site organization consisting of ambulatory clinics and hospital sitesin [place], [place], [place] and [place]. This disclosure is being madepursuant to the Care Everywhere program and may not contain all information available regarding this patient. 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
--- NOTE | 2024-09-13 06:35 | WPDHPUPDATE1 ---
History and Physical Update Update Date/Time: 09/13/24 06:35 History and Physical has been reviewed, including an updated exam of the patient. There are NO changes in the patient's condition. Risks, benefits, and alternatives have been discussed and questions answered. Patient agrees to proceed with procedure.
[2024-09-13 13:40] VITALS: BP 125/64; PULSE 74; RESP 16; TEMP 36.5; O2SAT 100
[2024-09-13] MEDS: LACTATED RINGERS 1,000 ML 30 ML IV CONT (13:55)
[2024-09-13] MEDS: ACETAMINOPHEN 500 MG TABLET 1000 MG PO (14:03)
[2024-09-13 14:06] LABS: BEDSIDEPREGUCG Negative (Negative)
--- NOTE | 2024-09-13 14:41 | P.PNAN_ITS ---
Anes - Initial Pre Proc Eval Procedure: Operation Date: 09/13/24 15:30 Proposed Procedures p Hysteroscopy Dilation and Curettage with Phyllis Endometrial Ablation - aEston Acuña MD Date/Time: 09/13/24 14:41 Surgeon: Easton Acuña MD Pre Op Diagnosis: Ricki Excessive Bleed, Dysmenorrhea Patient Data Age: 29 Gender: F Height: 1.57 m Weight: 71.8 kg Last Vital Signs Temp 36.5 C 09/13/24 13:40 Pulse 74 09/13/24 13:40 Resp 16 09/13/24 13:40 BP 125/64 09/13/24 13:40 Pulse Ox 100 09/13/24 13:40 O2 Del Method Room Air 09/13/24 13:40 Allergies Allergy/AdvReac Type Severity Reaction Status Date / Time Sulfa (Sulfonamide Allergy Severe Anaphylactic Verified 09/13/24 13:57 Antibiotics) Shock Home Medications ?Medication ?Instructions ?Recorded ?Confirmed ?Type cetirizine 10 mg tablet (Zyrtec) 10 mg PO DAILY 07/29/21 09/10/24 History multivitamin 1 tablet PO DAILY 07/29/21 09/13/24 History Bacillus coagulans 250 million 1 tablet PO DAILY 05/01/24 09/13/24 History cell chewable tablet (Digestive Advantage Immune) alprazolam 0.25 mg tablet 0.25 mg PO BID PRN anxiety #60 tabs 05/01/24 09/13/24 Rx spironolactone 50 mg tablet 50 mg PO BID #180 tabs 05/01/24 09/13/24 Rx hydrocodone 5 mg-acetaminophen 325 1 tablet PO Q4H PRN pain #14 tabs 09/13/24 Rx mg tablet Laboratory Tests 09/13/24 13:59 POC Urine HCG, Qual Negative (Negative) Patient hx anesthesia problems: none Family hx anesthesia problems: none Results Review: All pre-operative results and documents have been reviewed as part of the pre- operative evaluation. [facility] Past Medical History Medical History (Updated 09/13/24 @ 09:30 by Karl Kraus DO) OCD (obsessive compulsive disorder) PCOS (polycystic ovarian syndrome) Anxiety Unspecified perforation of tympanic membrane, right ear Tympanic membrane perforation, nontraumatic Sinusitis Post-operative pain COVID-19 Knee injury Surgical History Surgical History Previous section (~2018) H/O tubal ligation (~2018) Family History Family History Mother Hypertension Cerebrovascular accident Father Hypertension Grandparent Cancer Grandparent Hypertension Social History Social History Social History: Caffeine-daily Years smoked: 1 Smoking status: Former smoker Tobacco type: cigarettes Alcohol intake: current Alcohol use details: rarely Substance use: current Substance use type: marijuana Other substance usage details: Smokes 4x a month Lack of Transportation: No Lack of Food: Never True Current Housing: I Have Housing Concerned About Future Housing: No Difficulty Paying Gas/Electric Bills: No Difficulty Paying for Meds: No Currently Unemployed: No Education: High School Diploma/GED Difficulty w/ Childcare or Family Care: No Living arrangements: with family Spiritual care concerns: No Anes - Eval Final PreProcedure Day of Procedure 09/13/24 14:41 Patient weight: overweight Heart: regular rate and rhythm Lungs: clear to auscultation Airway: Mallampati scale class II Neurological: alert and oriented Last oral intake: >/= 8 hours ASA classification: II Emergent: no Anesthetic plan: proceed Anesthesia type and monitoring: general GIVS and standard monitoring Results Review: All pre-operative results and documents have been reviewed as part of the pre- operative evaluation. Informed Consent: The patient's anesthetic plan and its attendant risks and benefits were discussed with the patient/family/POA. Questions were solicited and answers provided to the satisfaction of the patient/family/POA.
--- NOTE | 2024-09-13 16:18 | S_PTH ---
PATIENT: Edilma Velasquez LOC: [facility] U#:[id number] AGE/SX: 29/F ROOM: RE09/13/[address]: Easton Acuña MD : 1995 BED: DIS: 09/13/2024 SPEC #: [id number] RECD: 09/16/24 07:47 STATUS: AR REQ #: [id number] MAYANK: 09/13/24 16:[address]: Easton Hutchinson DEPT: [facility] Surgical RECD BY: Mary Kay Bhardwaj ENTERED: 09/16/24 07:47 SP TYPE: Surgical OTHR DR: Luis A Doyle MD Tissues: A - Endometrial Curettings Procedures: Hematoxylin and Eosin Stain Gross and Microscopic Level 4
--- NOTE | 2024-09-13 16:19 | SUR.OPER ---
Fluid deficit 110
[2024-09-13] MEDS: KETOROLAC 30 MG/ML VIAL (*BKC) IV PUSH (16:21)
--- NOTE | 2024-09-13 16:28 | P.OP_ITS ---
Procedure Note - Detailed Date of Procedure 09/13/24 Pre-op Diagnosis Ricki Excessive Bleed, Dysmenorrhea Post-op Diagnosis Same Procedure Performed Hysteroscopy/dilatation curettage/Phyllis ablation Surgeon Easton Acuña MD Anesthesia MAC and Local Indications 29-year-old multiparous patient excessive heavy bleeding Findings Uterus sounded to 8cm. Thick irregular endometrial tissue. Description of Procedure Patient was prepped and draped in the normal sterile fashion placed in the dorsal lithotomy position. Under excellent IV sedation weighted speculum placed posterior fornix vagina. Anterior lip of the cervix grasped with single-tooth tenaculum. 2.5cc 1% xylocaine anesthesia placed at 2, 4, 8, 10:00 a.m. cervix. Uterus sounded 8cm. Serial dilatation with fragmented dilators performed follo wed by passage of the 5mm visualizing hysteroscope using normal saline as visualizing medium. Thick tissue was seen but abnormalities fallopian tube os could be seen the uterus was then scraped over the entire 360? until good grating sound was heard. Those instruments withdrawn the Phyllis instrument placed in the uterus at the appropriate settings and burned for 120seconds the Phyllis was removed the is hysteroscope was reinserted and excellent burn was seen photo documentation undertaken the instruments withdrawn blood loss was estimated 5cc. All sponge, needle, instrument counts were correct. Were no immediate complications Estimated Blood Loss 5 Drains No Packing No Pathology Yes Complications No immediate complications Condition Stable Disposition PACU
[2024-09-13 16:32] VITALS: BP 125/74; PULSE 75; RESP 20; O2SAT 98
[2024-09-13 17:00] VITALS: BP 116/64; PULSE 62; RESP 20
[2024-09-13] MEDS: oxyCODONE HCL (*CRX) 5 MG TAB IR PO (17:02)
[2024-09-13 17:19] VITALS: BP 125/89; PULSE 63; RESP 20
== END 2024-09-13 17:20 | disposition home or self-care (01) ==
PROVIDERS: PCP Emergency Medicine; Visit Provider Obstetrics & Gynecology
PROC: 0U5B8ZZ Destruction of Endometrium, Via Natural or Artificial Opening Endoscopic (ICD-10-PCS; CPT 58563; principal; 2024-09-13 15:30)
DX: N93.9 Abnormal uterine and vaginal bleeding, unspecified (principal); N94.6 Dysmenorrhea, unspecified; F12.90 Cannabis use, unspecified, uncomplicated; Z87.891 Personal history of nicotine dependence
CPT/HCPCS: 58563; 88305; A9270; J1171; J1885; J2003; J2250; J3010; J7120